=== PATIENT | female | born 1980 | race Caucasian/White ===

== ENCOUNTER 2021-04-11 11:20 | Emergency (ER) | payer OTHER, SELFPAY ==
[2021-04-11 11:40] VITALS: BP 185/118; PULSE 85; RESP 15; TEMP 36.8; O2SAT 98; BMI 26.2
--- NOTE | 2021-04-11 14:52 | ED.BACK ---
HPI - Back Pain/Injury <Basim Nunes PA-C - Last Filed: 04/11/21 16:57> General Chief Complaint: Back Pain/Injury Stated Complaint: Buldging Disks in Lower Back Time Seen by Provider: 04/11/21 14:11 Source: patient Limitations: no limitations History of Present Illness HPI Narrative: Patient is a 40-year-old female that presents to ED today for an evaluation of back pain. Patient states that she has had right-sided back pain for approximately 1 month, but she notes that her pain has worsened over the past 3-4 days. She reports an associated burning pain that travels down her right lower extremity with occasional muscle spasms. Additionally, she reports associated intermittent nausea when her pain worsens. Of note, the patient reports a mechanical fall approximately 1 week ago when she was walking her dog that resulted in her falling on her right side. Patient denies fever, chills, decreased sensation to touch in the extremities, loss of bladder or bowel control, saddle anesthesia, abdominal pain, or vomiting. No other concerns voiced at this time. Related Data Home Medications Medication Instructions Recorded Confirmed digestive enzymes PO 09/29/18 09/29/18 norethindrone (contraceptive) 0.35 0.35 mg PO DAILY 09/29/18 09/29/18 mg tablet (Sharobel) Previous Rx's Medication Instructions Recorded calcipotriene 0.005 % scalp 1 applictn TOP BEDTIME #60 ml 09/29/18 solution fluocinolone 0.01 % topical 1 applictn TOP BID #60 ml 09/30/18 solution Allergies Allergy/AdvReac Type Severity Reaction Status Date / Time No Known Drug Allergies Allergy Verified 04/11/21 11:40 Review of Systems <Basim Nunes PA-C - Last Filed: 04/11/21 16:57> Constitutional Constitutional: Denies chills, Denies fever(s), Denies frequent falls, Denies lethargy and Denies weakness ENT Ears, Nose, Mouth, and Throat: Denies dizziness Cardiovascular Cardiovascular: Denies chest pain, Denies irregular heart rhythm, Denies lightheadedness, Denies palpitations, Denies dyspnea, Denies dyspnea on exertion and Denies orthopnea Respiratory Respiratory: Denies cough, Denies dyspnea, Denies dyspnea on exertion and Denies wheezing Gastrointestinal Gastrointestinal: Denies abdominal pain, Denies change in bowel habits, Denies diarrhea, Reports nausea, Denies vomiting and Reports other (Denies fecal incontinence) Genitourinary Genitourinary: Denies difficulty voiding and Reports other (Denies urinary incontinence) Musculoskeletal Musculoskeletal: Denies numbness Neurologic Neurologic: Denies behavioral changes, Denies confusion, Denies dizziness, Denies frequent falls, Denies numbness and Denies weakness Psychiatric Psychiatric: Denies behavioral changes and Denies confusion Endocrine Endocrine: Denies palpitations Allergic/Immunologic Allergic/Immunologic: Denies wheezing Patient History <Basim Nunes PA-C - Last Filed: 04/11/21 16:57> Family History Grandfather Mental health problem Grandmother Age: 81 High cholesterol Social History Smoking Status: Current some day smoker Smoking Status: Current some day smoker alcohol intake frequency: holidays/special occasions only Substance Use Type: does not use Exam <Basim Nunes PA-C - Last Filed: 04/11/21 16:57> Narrative Exam Narrative: GENERAL: 40 year old patient appears stated age. Well-developed patient, in mild distress. HEAD: Atraumatic. Normocephalic. EYES: Pupils equal round and reactive. Extraocular motions intact. No scleral icterus. No injection or drainage. ENT: Nose without bleeding, purulent drainage. Throat without erythema, tonsillar hypertrophy or exudate. Airway patent. NECK: Trachea midline. Non tender CARDIOVASCULAR: Regular rate and rhythm without murmurs, gallops, or rubs. RESPIRATORY: Clear to auscultation. Breath sounds equal bilaterally. No wheezes, rales, or rhonchi. GASTROINTESTINAL: Abdomen soft, non-tender, nondistended. Pain with resisted flexion of the right hip. Tenderness to palpation appreciated on the lateral aspect of the right hip. EXTREMITIES: No edema or joint tenderness. No midline L-spine tenderness to palpation. BACK: Nontender without deformity or crepitance. No flank tenderness. NEURO: AOx3. Good sensation appreciated throughout the bilateral lower extremities to light touch. Resisted dorsiflexion and plantar flexion performed bilaterally without difficulty, slight pain appreciated with resisted dorsiflexion of the right ankle. SKIN: No rash or erythema of visible areas Initial Vital Signs Initial Vital Signs: Vital Signs Temperature 98.2 F 04/11/21 11:40 Pulse Rate 85 04/11/21 11:40 Respiratory Rate 15 04/11/21 11:40 Blood Pressure 185/118 H 04/11/21 11:40 Pulse Oximetry 98 04/11/21 11:40 <Le Urbina DO - Last Filed: 04/11/21 20:09> Initial Vital Signs Initial Vital Signs: Vital Signs Temperature 98.2 F 04/11/21 11:40 Pulse Rate 85 04/11/21 11:40 Respiratory Rate 15 04/11/21 11:40 Blood Pressure 185/118 H 04/11/21 11:40 Pulse Oximetry 98 04/11/21 11:40 Course <Basim Nunes PA-C - Last Filed: 04/11/21 16:57> Course Course Narrative: Patient is a 40-year-old female that presents to ED today for an evaluation of back pain. Gabapentin, Toradol, dexamethasone ordered. Bedside urine dipstick shows glucose of 1000 mg/dL. Blood glucose ordered and resulted 179. Orders Ordered: Discontinued Medications Dexamethasone (Dexamethasone 4 Mg Tablet) 4 mg PO NOW ONE Stop: 04/11/21 14:53 Last Admin: 04/11/21 15:03 Dose: 4 mg Documented by: JOE Gabapentin (Gabapentin 300 Mg Capsule) 300 mg PO NOW ONE Stop: 04/11/21 14:53 Last Admin: 04/11/21 15:03 Dose: 300 mg Documented by: JOE Ketorolac Tromethamine (Ketorolac 10 Mg Tablet) 10 mg PO NOW ONE Stop: 04/11/21 14:53 Last Admin: 04/11/21 15:03 Dose: 10 mg Documented by: JOE Vital Signs Vital signs: Vital Signs - 8 hr 04/11/21 15:11 Pulse Rate 88 Blood Pressure 154/107 H Pulse Oximetry 100 <Le Urbina DO - Last Filed: 04/11/21 20:09> Course Course Narrative: Patient is a 40-year-old female that presents to ED today for an evaluation of back pain. Gabapentin, Toradol, dexamethasone ordered. Bedside urine dipstick shows glucose of 1000 mg/dL. Blood glucose ordered and resulted 179. Orders Ordered: Discontinued Medications Dexamethasone (Dexamethasone 4 Mg Tablet) 4 mg PO NOW ONE Stop: 04/11/21 14:53 Last Admin: 04/11/21 15:03 Dose: 4 mg Documented by: JOE Gabapentin (Gabapentin 300 Mg Capsule) 300 mg PO NOW ONE Stop: 04/11/21 14:53 Last Admin: 04/11/21 15:03 Dose: 300 mg Documented by: JOE Ketorolac Tromethamine (Ketorolac 10 Mg Tablet) 10 mg PO NOW ONE Stop: 04/11/21 14:53 Last Admin: 04/11/21 15:03 Dose: 10 mg Documented by: JOE Vital Signs Vital signs: Vital Signs - 8 hr 04/11/21 15:11 Pulse Rate 88 Blood Pressure 154/107 H Pulse Oximetry 100 MDM - Back Pain/Injury <Basim Nunes PA-C - Last Filed: 04/11/21 16:57> Lab Data Labs: Point of Care Testing Test Results Negative Glucose POC 179 Urine Dip Bedside Urine Glucose 1000 mg/dl Bedside Urine Bilirubin - Negative Bedside Urine Ketone - Negative Urine Specific [place] 1.025 Bedside Urine Occult Blood - Negative Bedside Urine pH 5.5 Bedside Urine Protein +/- 15 Bedside Urine Leukocytes - Negative Esterase MDM Narrative Medical decision making narrative: Patient is a 40-year-old female that presents to ED today for an evaluation of back pain. To consider lumbar radiculopathy versus cauda equinus syndrome versus musculoskeletal low back pain. Physical examination is reassuring, as the patient does not have saddle anesthesia and notes good sensation throughout her bilateral lower extremities. Additionally, she has denied any changes in bowel or bladder function including urinary incontinence or retention or fecal incontinence or retention. Patient states she is feeling better after receiving her gabapentin, Toradol, and dexamethasone and she states she is feeling good enough to go home. Discussed strict return precautions with the patient prior to discharge. <Le Urbina DO - Last Filed: 04/11/21 20:09> Lab Data Labs: Point of Care Testing Test Results Negative Glucose POC 179 Urine Dip Bedside Urine Glucose 1000 mg/dl Bedside Urine Bilirubin - Negative Bedside Urine Ketone - Negative Urine Specific [place] 1.025 Bedside Urine Occult Blood - Negative Bedside Urine pH 5.5 Bedside Urine Protein +/- 15 Bedside Urine Leukocytes - Negative Esterase Discharge Plan Departure Patient Disposition: Home Clinical Impression: Lumbar radiculopathy Instructions: DI for Back Pain With Sciatica Activity Restrictions/Additional Instructions: *You have been diagnosed with lumbar radiculopathy *What to do: *Please continue to take your regular medications as directed. [ ] New medication prescriptions sent to your pharmacy: [ ] [ ] New medication written as a paper prescription [X] No new medications given *Please follow up with your primary care provider in 2-3 days, call for an appointment. Let them know you were seen in the Emergency Department and that we ask that you be seen in follow up. We will electronically transmit a record of today's note if your PCP is in our system. [facility] can be reached [phone]. *If you do not have a primary care provider please contact the [facility] Resource line at [phone]. They will ask some questions about your medical history and help get you set up with a doctor in the community. *Return to Emergency Department if you should have any new, worsening or concerning symptoms, such as fever greater than 101 F, shaking chills, worsening pain, decreased sensation along the inner thighs, bowel or bladder incontinence, persistent vomiting or other bothersome symptoms. Prescriptions: No Action digestive enzymes PO RF: 0 norethindrone (contraceptive) [Sharobel] 0.35 mg tablet 0.35 mg PO DAILY RF: 0 calcipotriene 0.005 % solution 1 applictn TOP BEDTIME Qty: 60 RF: 1 fluocinolone 0.01 % solution 1 applictn TOP BID Qty: 60 RF: 3 <Le Urbina, DO - Last Filed: 04/11/21 20:09> [facility] ED Attending Belinda Attestation: I was immediately available in the department for consultation. Documentation has been reviewed. Discussed todays findings and case. Urine glucose showed greater than a 1000 point of care glucose is 179 patient was encouraged to follow up with primary care for further testing.
[2021-04-11] MEDS: dexAMETHasone 4 MG TABLET PO (15:03)
[2021-04-11] MEDS: GABAPENTIN 300 MG CAPSULE PO (15:03)
[2021-04-11] MEDS: KETOROLAC 10 MG TABLET PO (15:03)
[2021-04-11 15:11] VITALS: BP 154/107; PULSE 88; O2SAT 100
== END 2021-04-11 16:38 | disposition home or self-care (01) ==
PROVIDERS: Emergency Provider Physician Assistant
DX: M54.16 Radiculopathy, lumbar region (principal); R11.0 Nausea
CPT/HCPCS: 81003; 81025; 82962; 99283

== ENCOUNTER → 2021-04-15 12:49 | Outpatient (CLI) | payer OTHER, SELFPAY ==
--- NOTE | 2021-04-15 | DI.RAD.S_ITS ---
PROCEDURE: XR LUMBAR SPINE MIN 4V INDICATIONS: Low back pain, unspecified TECHNIQUE: 4 views of the lumbar spine were acquired, including bilateral oblique views. COMPARISON: [facility], , -SPINE 2-3 VIEWS, 08/30/2008, 10:13. FINDINGS: Bones: Rudimentary ribs at T12. 5 nonrib-bearing vertebrae are present. There is normal bony alignment. No vertebral body compression fractures. No suspicious bony lesions. Facet arthrosis at L5-S1. Soft tissues: Overlying bowel gas pattern is normal. No suspicious soft tissue calcifications. Oblique images: No pars defects. IMPRESSION: No acute osseous abnormality. Dictated by: Eduardo Kirk M.D. on 04/15/2021 at 15:16 Approved by: Eduardo Kirk M.D. on 04/15/2021 at 15:17
== END ==
PROVIDERS: Referring Provider Chiropractor; Visit Provider Chiropractor
DX: M54.50 Low back pain, unspecified (principal)
CPT/HCPCS: 72110

== ENCOUNTER → 2021-05-06 12:12 | Outpatient (CLI) | payer OTHER, SELFPAY ==
[2021-05-06 12:41] LABS: Hematocrit 40.3 % (36-46); Hemoglobin 13.4 g/dL (12.0-16.0); Mean Corpuscular HGB Conc 33.3 % (30-36); Mean Corpuscular Hemoglobin 31.2 PG (26-34); Mean Corpuscular Volume 93.9 fL (80-100); Platelet Count 241 X10^3/uL (150-400); Red Blood Cell Count 4.29 X10^6/uL (4.0-5.2); White Blood Cell Count 9.7 X10^3/uL (4.5-11.0)
[2021-05-06 12:58] LABS: Hemoglobin A1C% w Est Avg Glu 9.2 % (4.0-6.0)
[2021-05-06 13:14] LABS: Alanine Aminotransferase 31 IU/L (<35); Albumin 4.6 g/dL (3.5-5.0); Albumin Globulin Ratio 1.7 (1.0-2.8); Alkaline Phosphatase 88 U/L (38-126); Aspartate Aminotransferase 27 IU/L (14-36); BUN Creatinine Ratio 27.3 (6-22); Bilirubin Total 0.6 mg/dL (0.2-1.3); Blood Urea Nitrogen 15 mg/dL (7-17); Calcium 9.9 mg/dL (8.4-10.2); Carbon Dioxide 26 mmol/L (22-32); Chloride 100 mmol/L (98-107); Cholesterol 245 mg/dL (140-199); Estimated Glomerular Filt Rate > 60.0 mL/min (>60); Globulin 2.7 g/dL (1.7-4.1); Glucose 239 mg/dL (70-100); HDL Cholesterol 66 mg/dL (40-60); HEMOLYSIS < 15 (0-50); LDL Cholesterol Calculated 144 mg/dL (<100); Potassium 4.1 mmol/L (3.4-5.1); Sodium 135 mmol/L (137-145); Total Protein 7.3 g/dL (6.3-8.2); Triglycerides 176 mg/dL (35-150)
[2021-05-06 13:30] LABS: Free T3, Triiodothyronine Free 3.27 pg/mL (2.77-5.27); Free T4, Direct Thyroxine 0.93 ng/dL (0.78-2.19)
[2021-05-06 17:15] LABS: Creatinine Urine Random 77.1 mg/dL
[2021-05-06 17:19] LABS: Microalbumi Creatinin Ratio Ur 45.3 ug/mg CR (<30); Microalbumin Urine Random 3.5 mg/dL (0-1.6)
== END ==
PROVIDERS: PCP Nurse Practitioner; Referring Provider Nurse Practitioner; Visit Provider Nurse Practitioner
DX: Z00.00 Encounter for general adult medical examination without abnormal findings (principal); E11.9 Type 2 diabetes mellitus without complications
CPT/HCPCS: 36415; 80053; 80061; 82043; 82570; 83036; 84439; 84443; 84481; 85027

== ENCOUNTER → 2021-07-09 15:40 | Outpatient (CLI) | payer OTHER, SELFPAY ==
--- NOTE | 2021-07-10 14:57 | DIAB.INIT ---
Initial Diabetes Education Assessment Name: Mayra Jackson Date: 07/09/21 Time: 340-293p Dx: Type II Diabetes Provider: Sveta Bonds Preferred Learning Style: Listening, watching Mayra presents today for initial diabetes ed visit. States she is unclear on what she can do to manage her BG since she already eats quite healthy. Aims for low carb, adding vegetables, lean protein, and quit ETOH. States she has decreased her ETOH intake to 2 servings per day over the last 2 years, and in the last month quit drinking completely. Denies any s/s of withdrawal. Reports difficulty managing BG when she had covid last May. Set BG of 350 with provider when to call provider. Aiming for 150 for BG goals with provider at this time. Possible FH of DM with paternal grandfather. Does not have contact with maternal family. States she feels confused as to why she has this diagnosis. States she can feel elevated BG in her head (heavy/pressure) and tension in her neck. In fact, wondering if recent headaches are from hyperglycemia instead of migraine. Walking brings BG down significantly. Denies any excessive urination or thirst. Fasts for 12 hours overnight and still wakes with hyperglycemia. Brought BG log book and food log for review today. Using monk fruit in her tea. Review of food log indicates low carb meals for most meals and snacks. Endorses gluten allergy which manifests in rashes. Anthropometrics: Ht: 65 Wt: 149# reported Weight history: -8-10# reported since d/c ETOH Physical Activity: walks dogs 1-2 x per day for 15-30 min. States she cannot think of a way to increase this with her current work load. 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 Weekends states she will often walk BID. Self-Monitoring Blood Glucose: Per ADA guidelines, FBG all elevated. After meals readings indicate 1/6 elevated lunch pc and 4/6 elevated dinner pc. Per provider rec of <150 5/6 elevated FBG. In range readings from walk prior to eating. Seems likely that medication and/or could help with hyperglycemia. Per provider notes and pt, current plan is getting a DPP4i approved for use. Pt endorses fear of needles. May be a good candidate for SGLT2i pending provider recs. Date Pre Post Pre Post Pre Post HS 07/03 182 145 129 07/04 163 190 07/05 172 155 123 210 07/06 170 137 205 07/07 138 after walk 183 07/08 223 135 188 07/09 189 167 155 Diabetes Medications: Metformin 1000 mg BID DPP4i awaiting approval Pertinent Labs: 04/2021: HgA1c: 9.2% T H Cholesterol: 245 H LDL: 144 H HDL: 66 AST: 27 WNL ALT: 31 WNL Past Medical History: (Last Updated 06/26/21 @ 08:51 by JUAQUIN Benitez) Hypertension Migraine Migraine aura without headache (migraine equivalents) Migraine with visual aura Mixed hyperlipidemia due to type 2 diabetes mellitus Non-insulin dependent diabetes mellitus Intervention: This participant was very receptive. Provided appropriate educational handouts. Discussed the following topics: Completed intake assessment. Discussed barriers to care. Pathophysiology of type 2 diabetes HgA1c, its correlation to blood glucose numbers, and rationale for goal Importance of self-monitoring, how often, and when to check. Currently checking 2-4x per day. Plate Method, impact of macronutrients on blood sugar, meal timing, carbohydrate goal for meals/snacks, pairing macronutrients and spreading out carbohydrates for better blood glucose management Reviewed label reading for net carbs General recommended servings for carbohydrates at meals and snacks Role of physical activity and following provider guidelines for safety Medication types and action Created SMART goals for patient self-care and success. Goals: Try to eat q 3-5 hours Walk 30-40 mins per day on weekends Call insurance an ask about different DM med coverage prior to PCP visit Follow-up: ODILIA ROGERS follow-up in 3-4 weeks. Overall, Mayra seems to be doing well with nutrition changes. She is having some challenges with getting medication coverage. Additionally, physical activity is a barrier for her most days. Hoping she can get approved for an additional Dm agent to better manage BG. Meryl Hayes RDN, [facility] Certified Diabetes Care and Supervisor [employer] P: [phone] Thank you for this referral
== END ==
PROVIDERS: PCP Nurse Practitioner; Referring Provider Nurse Practitioner; Visit Provider Nurse Practitioner
DX: E11.65 Type 2 diabetes mellitus with hyperglycemia (principal); Z79.84 Long term (current) use of oral hypoglycemic drugs; Z71.3 Dietary counseling and surveillance
CPT/HCPCS: G0108

== ENCOUNTER → 2021-08-05 07:39 | Outpatient (CLI) | payer OTHER, SELFPAY ==
[2021-08-05 09:37] LABS: Alanine Aminotransferase 17 IU/L (<35); Albumin 4.8 g/dL (3.5-5.0); Albumin Globulin Ratio 1.6 (1.0-2.8); Alkaline Phosphatase 65 U/L (38-126); Aspartate Aminotransferase 21 IU/L (14-36); BUN Creatinine Ratio 23.5 (6-22); Bilirubin Total 0.6 mg/dL (0.2-1.3); Blood Urea Nitrogen 12 mg/dL (7-17); Calcium 9.9 mg/dL (8.4-10.2); Carbon Dioxide 24 mmol/L (22-32); Chloride 104 mmol/L (98-107); Cholesterol 212 mg/dL (140-199); Estimated Glomerular Filt Rate > 60.0 mL/min (>60); Glucose 199 mg/dL (70-100); HDL Cholesterol 43 mg/dL (40-60); HEMOLYSIS < 15 (0-50); LDL Cholesterol Calculated 146 mg/dL (<100); Potassium 4.6 mmol/L (3.4-5.1); Sodium 135 mmol/L (137-145); Total Protein 7.8 g/dL (6.3-8.2); Triglycerides 116 mg/dL (35-150)
== END ==
PROVIDERS: PCP Nurse Practitioner; Referring Provider Nurse Practitioner; Visit Provider Nurse Practitioner
DX: E11.69 Type 2 diabetes mellitus with other specified complication (principal); E78.2 Mixed hyperlipidemia; I10 Essential (primary) hypertension; Z79.899 Other long term (current) drug therapy
CPT/HCPCS: 36415; 80053; 80061; 83036

== ENCOUNTER → 2021-08-07 15:27 | Outpatient (CLI) | payer OTHER, SELFPAY ==
--- NOTE | 2021-08-08 16:06 | DIAB.MNTFU ---
Diabetes Medical Nutrition Therapy Assessment Name: Mayra Jackson Date: 08/07/21 Time: 335-450p Dx: Type II Diabetes Mayra presents today for nutrition follow-up. States she would like to discuss diet changes specifically for reducing her cholesterol. Per provider notes, and confirmed by Mayra, the plan is to start her on a statin after getting adjusted to new dm med, glipizide, which she will begin tonight. Was previously considering DPP4i, but this was $40 with her insurance per her report. Decided to go with more affordable sulfonylurea. New labs indicate improved hgA1c, but still >7%. Improved cholesterol but cont >200. States eats most fish in the summer. Does not like frozen fish. Only eats fresh or canned tuna or prawns sometimes frozen. Eating plenty of nuts and seeds. Loves cheese. May be eating high saturated fat intake with cheese and butter intake. Anthropometrics: Wt: 147# reported Physical Activity: Has increased since last visit. Now jogging for the last two weeks in the morning. Jogs 1 mi. Then walks 30-45 min BID. Steps per day mostly >10K this week. Great improvement. Self-Monitoring Blood Glucose: Endorses continued elevated FBG 150-200 mg/dL. After meal readings in range 87-170 mg/dL. Diabetes Medications: 1000 mg Metformin BID New: Glipizide 5mg with dinner Pertinent Labs: 07/2021: HgA1c: 8% Cholesterol: 212 H LDL: 146 H HDL: 43 L 04/2021: HgA1c: 9.2% T H Cholesterol: 245 H LDL: 144 H HDL: 66 AST: 27 WNL ALT: 31 WNL Past Medical History: (Last Reviewed 08/06/21 @ 17:12 by JUAQUIN Benitez) Hypertension Migraine Migraine aura without headache (migraine equivalents) Migraine with visual aura Mixed hyperlipidemia due to type 2 diabetes mellitus Non-insulin dependent diabetes mellitus Nutrition Rx: Plate method, Saturated fat 10g per day or less Nutrition Diagnosis: Predicted excessive saturated fat intake r/t nutrition knowledge deficit aeb elevated cholesterol, pt report, diet recall Nutrition related knowledge deficit r/t req additional mnt for HLD aeb pt report and labs Predicted inadequate fiber intake r/t lower whole grain/GF options and fruit intake aeb pt report Intervention: This participant was very receptive. Provided appropriate educational handouts. Discussed the following topics: Blood sugar review and trends. Mediterranean nutrition recs heart healthy fats increasing fiber on GF diet incorporating fruit and vegetables and beans Fish intake Label reading Physical activity plan and progress Created SMART goals for patient self-care and success. Goals: Try to eat q 3-5 hours- met Walk 30-40 mins per day on weekends- met Call insurance an ask about different DM med coverage prior to PCP visit - met Look for higher fiber GF bread- new Reduce cheese intake- new Read labels for saturated fat- new Follow-up: ODILIA ROGERS follow-up in October. Mayra would like to postpone follow-up until after new labs. Encouraged her to call or message with any questions. She agreed. Meryl Hayes RDN, [facility] Certified Diabetes Care and College [employer] Assistant P: [phone] Thank you for this referral
== END ==
PROVIDERS: PCP Nurse Practitioner; Referring Provider Nurse Practitioner; Visit Provider Nurse Practitioner
DX: E11.9 Type 2 diabetes mellitus without complications (principal); Z79.84 Long term (current) use of oral hypoglycemic drugs; Z71.3 Dietary counseling and surveillance
CPT/HCPCS: 97802

== ENCOUNTER → 2021-09-11 08:08 | Outpatient (CLI) | payer OTHER, SELFPAY ==
[2021-09-11 09:30] LABS: Hemoglobin A1C% w Est Avg Glu 6.9 % (4.0-6.0)
[2021-09-11 09:46] LABS: Alanine Aminotransferase 15 IU/L (<35); Albumin 4.5 g/dL (3.5-5.0); Albumin Globulin Ratio 1.8 (1.0-2.8); Alkaline Phosphatase 60 U/L (38-126); Aspartate Aminotransferase 21 IU/L (14-36); BUN Creatinine Ratio 19.7 (6-22); Bilirubin Total 0.3 mg/dL (0.2-1.3); Blood Urea Nitrogen 14 mg/dL (7-17); Calcium 9.5 mg/dL (8.4-10.2); Carbon Dioxide 24 mmol/L (22-32); Chloride 106 mmol/L (98-107); Cholesterol 183 mg/dL (140-199); Estimated Glomerular Filt Rate > 60.0 mL/min (>60); Globulin 2.5 g/dL (1.7-4.1); Glucose 144 mg/dL (70-100); HDL Cholesterol 45 mg/dL (40-60); HEMOLYSIS < 15 (0-50); LDL Cholesterol Calculated 124 mg/dL (<100); Potassium 4.3 mmol/L (3.4-5.1); Sodium 139 mmol/L (137-145); Triglycerides 70 mg/dL (35-150)
[2021-09-11 15:40] LABS: Microalbumi Creatinin Ratio Ur 19.3 ug/mg CR (<30); Microalbumin Urine Random 3.2 mg/dL (0-1.6)
== END ==
PROVIDERS: PCP Nurse Practitioner; Referring Provider Nurse Practitioner; Visit Provider Nurse Practitioner
DX: E11.69 Type 2 diabetes mellitus with other specified complication (principal); E78.2 Mixed hyperlipidemia; I10 Essential (primary) hypertension; Z79.899 Other long term (current) drug therapy
CPT/HCPCS: 36415; 80053; 80061; 82043; 82570; 83036

== ENCOUNTER → 2021-10-21 07:49 | Outpatient (CLI) | payer OTHER, SELFPAY ==
[2021-10-21 08:55] LABS: Creatinine Urine Random 138.4 mg/dL
[2021-10-21 08:57] LABS: Hemoglobin A1C% w Est Avg Glu 6.9 % (4.0-6.0)
[2021-10-21 09:01] LABS: Microalbumi Creatinin Ratio Ur 21.6 ug/mg CR (<30)
[2021-10-21 09:04] LABS: Alanine Aminotransferase 14 IU/L (<35); Albumin 4.6 g/dL (3.5-5.0); Albumin Globulin Ratio 1.8 (1.0-2.8); Alkaline Phosphatase 57 U/L (38-126); Aspartate Aminotransferase 19 IU/L (14-36); BUN Creatinine Ratio 26.3 (6-22); Bilirubin Total 0.4 mg/dL (0.2-1.3); Blood Urea Nitrogen 15 mg/dL (7-17); Calcium 9.3 mg/dL (8.4-10.2); Carbon Dioxide 22 mmol/L (22-32); Chloride 107 mmol/L (98-107); Cholesterol 155 mg/dL (140-199); Estimated Glomerular Filt Rate > 60 mL/min (>60); Globulin 2.5 g/dL (1.7-4.1); Glucose 191 mg/dL (70-100); HDL Cholesterol 47 mg/dL (40-60); HEMOLYSIS < 15 (0-50); LDL Cholesterol Calculated 88 mg/dL (<100); Potassium 4.5 mmol/L (3.4-5.1); Sodium 140 mmol/L (137-145); Total Protein 7.1 g/dL (6.3-8.2); Triglycerides 99 mg/dL (35-150)
== END ==
PROVIDERS: PCP Nurse Practitioner; Referring Provider Nurse Practitioner; Visit Provider Nurse Practitioner
DX: E11.69 Type 2 diabetes mellitus with other specified complication (principal); E78.2 Mixed hyperlipidemia; Z79.899 Other long term (current) drug therapy
CPT/HCPCS: 36415; 80053; 80061; 82043; 82570; 83036

== ENCOUNTER → 2022-01-28 07:45 | Outpatient (CLI) | payer OTHER, SELFPAY ==
[2022-01-28 08:38] LABS: Add Manual Diff / Slide Review NO; Basophils Absolute Auto 200 /uL (0-100); Basophils Percent Auto 2.6 % (0-2); Eosinophils Absolute Auto 100 /uL (0-450); Eosinophils Percent Auto 1.8 % (2-4); Hematocrit 38.7 % (36-46); Hemoglobin 13.2 g/dL (12.0-16.0); Lymphocytes Absolute Auto 1800 /uL (1100-4500); Mean Corpuscular HGB Conc 34.1 % (30-36); Mean Corpuscular Hemoglobin 30.1 PG (26-34); Mean Corpuscular Volume 88.4 fL (80-100); Monocytes Absolute Auto 500 /uL (0-900); Monocytes Percent Auto 7.3 % (3-14); Neutrophils Absolute Auto 4000 /uL (1500-7000); Neutrophils Percent Auto 61.3 % (50-75); Platelet Count 259 X10^3/uL (150-400); Red Blood Cell Count 4.38 X10^6/uL (4.0-5.2); Red Cell Distribution Width 13.8 % (11.6-14.8); White Blood Cell Count 6.5 X10^3/uL (4.5-11.0)
[2022-01-28 08:41] LABS: Hemoglobin A1C% w Est Avg Glu 6.9 % (4.0-6.0)
[2022-01-28 09:24] LABS: Alanine Aminotransferase 15 IU/L (<35); Albumin 4.9 g/dL (3.5-5.0); Albumin Globulin Ratio 1.7 (1.0-2.8); Alkaline Phosphatase 70 U/L (38-126); Aspartate Aminotransferase 20 IU/L (14-36); BUN Creatinine Ratio 33.9 (6-22); Bilirubin Total 0.7 mg/dL (0.2-1.3); Blood Urea Nitrogen 20 mg/dL (7-17); Calcium 9.6 mg/dL (8.4-10.2); Carbon Dioxide 23 mmol/L (22-32); Chloride 105 mmol/L (98-107); Cholesterol 199 mg/dL (140-199); Estimated Glomerular Filt Rate > 60 mL/min (>60); Globulin 2.9 g/dL (1.7-4.1); Glucose 176 mg/dL (70-100); HDL Cholesterol 46 mg/dL (40-60); HEMOLYSIS < 15 (0-50); LDL Cholesterol Calculated 140 mg/dL (<100); Potassium 4.7 mmol/L (3.4-5.1); Sodium 139 mmol/L (137-145); Total Protein 7.8 g/dL (6.3-8.2); Triglycerides 63 mg/dL (35-150)
[2022-01-28 10:11] LABS: Creatinine Urine Random 145.4 mg/dL
[2022-01-28 10:16] LABS: Microalbumi Creatinin Ratio Ur 19.2 ug/mg CR (<30); Microalbumin Urine Random 2.8 mg/dL (0-1.6)
== END ==
PROVIDERS: PCP Nurse Practitioner; Referring Provider Nurse Practitioner; Visit Provider Nurse Practitioner
DX: E11.69 Type 2 diabetes mellitus with other specified complication (principal); E78.2 Mixed hyperlipidemia; I10 Essential (primary) hypertension
CPT/HCPCS: 36415; 80053; 80061; 82043; 82570; 83036; 85025

== ENCOUNTER → 2022-04-24 13:37 | Outpatient (CLI) | payer OTHER, SELFPAY ==
--- NOTE | 2022-04-24 13:39 | DI.MG.S_ITS ---
BILATERAL DIGITAL SCREENING MAMMOGRAM 3D/2D WITH CAD: 04/24/2022 CLINICAL: Baseline exam. Routine screening. No prior exams were available for comparison. Both breasts are heterogeneously dense, which may obscure small masses (category c / 51-75% glandular tissue). Current study was also evaluated with a Computer Aided Detection (CAD) system. There is possible irregular architectural distortion in the left breast at 12 o'clock middle depth. No other significant masses, calcifications, or other findings are seen in either breast. IMPRESSION: INCOMPLETE: NEEDS ADDITIONAL IMAGING EVALUATION The possible irregular architectural distortion in the left breast most likely is fibroglandular tissue or fibrocystic change and is indeterminate. Additional views with possible ultrasound are recommended. Based on the Tyrer Cuzick model (a risk assessment model) the patient's lifetime risk is 14.9% and her 10 year risk is 2.4%. According to the ACR, ACS, and NCCN guidelines, an annual breast MRI exam along with mammogram is recommended if the patient's lifetime risk is 20% or greater. This exam was interpreted at Station ID: [id number]. NOTE: For mammograms, a report in lay terms will be sent to the patient. Approximately 15% of breast malignancies will not be visualized mammographically. In the management of a palpable breast mass, a negative mammogram must not discourage biopsy of a clinically suspicious lesion. Electronically Signed By: Maria Eugenia nash/brittnee:04/24/2022 18:12:27 letter sent: Additional Imaging Needed ACR BI-RADS Category 0: Incomplete [id number]
--- NOTE | 2022-04-24 13:39 | DI.ECHO.S_ITS ---
[facility] +---------+ : : [address] [place] : : : : [id number] : : : : Phone: [phone]+ Echocardiogram Report + + :Name: JOEL RUIZ Study Date: 04/24/2022 Height: 65 in : :[facility] ReadingLocation: Weight: 135 lb : : Gender: Female BSA: 1.7 m2 : :: 1980 Age: 41 yrs BP: 117/74 mmHg: :Reason For Study: HYPERTENSION, NIDDM : :Ordering Physician: APRIL, : :SHANNA Performed By: Miriam Johnson : :Referring: SHANNA CHEN : + + Interpretation Summary The ejection fraction is estimated to be 60-65%. There is no significant valvular heart disease. Procedure: A two-dimensional transthoracic echocardiogram with color flow and Doppler was performed. The study quality was technically good. There is no prior echocardiogram noted for this patient. The patient was in normal sinus rhythm during the exam. The heart rate ranged between 64-75 bpm during the study. Left Ventricle: The left ventricle is normal in size. There is normal left ventricular wall thickness. The ejection fraction is estimated to be 60-65%. Left ventricular wall motion is normal. Right Ventricle: The right ventricle is normal in size and function. Atria: The left atrial size is normal. Right atrial size is normal. There is no Doppler evidence for an interatrial shunt. Mitral Valve: The mitral valve is normal in structure and function. There is trace mitral regurgitation. Aortic Valve: The aortic valve is normal in structure and function. The aortic valve is trileaflet. The aortic valve opens well. There is no aortic valve stenosis. There is trace aortic regurgitation. Tricuspid Valve: The tricuspid valve is normal in structure and function. There is trace tricuspid regurgitation. Pulmonic Valve: The pulmonic valve is not well seen, but is grossly normal. There is no pulmonic valvular regurgitation. Great Vessels: The aortic root is normal size. The dimensions of the ascending aorta are normal. The IVC is dilated (diameter is greater than 2.1 cm) yet it collapses greater than 50% with a sniff. This suggests a right atrial pressure of 8 mm Hg. Pericardium/ Pleura There is no pericardial effusion. There is no pleural effusion. MMode/2D Measurements & Calculations LVIDd: 5.1 cm LVOT diam: 2.1 cm LVIDs: 3.5 cm Ao root diam: 3.1 cm FS: 32.6 % asc Aorta Diam: 3.1 cm EPSS: 0.99 cm Ao Arch Diam (Prox Trans): 2.5 cm IVSd: 0.59 cm LVPWd: 0.85 cm LV romero. diameter/BSA (cm/m^2): 3.1 LV sys. diameter/BSA (cm/m^2): 2.1 LA A2 area: 19.3 cm2 RA long axis: 5.0 cm LA A4 area: 17.4 cm2 RA area: 17.4 cm2 LA length (vol): 5.5 cm RA vol: 51.7 ml LA vol: 52.0 ml RA : 30.9 ml/m2 LA vol index: 31.1 ml/m2 IVC diam: 2.1 cm RVD1 (basal): 3.1 cm RVD2 (mid): 2.5 cm TAPSE: 2.2 cm Doppler Measurements & Calculations Ao V2 max: 147.8 cm/sec LVOT Max Nixon: 113.0 cm/sec Ao V2 mean: 109.0 cm/sec LV V1 max P.1 mmHg Ao max P.7 mmHg LV V1 VTI: 23.5 cm Ao mean P.2 mmHg FAIZAN(I,D): 2.8 cm2 Ao V2 VTI: 29.9 cm FAIZAN(V,D): 2.7 cm2 sev ratio: 0.79 FAIZAN indexed to BSA (cm^2/m^2): 1.7 MV E max nixon: 82.5 cm/sec PA V2 max: 95.3 cm/sec MV A max nixon: 62.7 cm/sec PA V2 mean: 59.7 cm/sec MV E/A: 1.3 PA mean P.7 mmHg Med Peak E' Nixon: 8.7 cm/sec PA pr(Accel): 19.1 mmHg E/E' med: 9.5 Lat Peak E' Nixon: 11.8 cm/sec E/E' lat: 7.0 E/e' average: 8.2 MV dec time: 0.17 sec SVDEENA): 83.6 ml Reading Physician:12:15 PM
== END ==
PROVIDERS: PCP Nurse Practitioner; Referring Provider Nurse Practitioner; Visit Provider Nurse Practitioner
DX: Z12.31 Encounter for screening mammogram for malignant neoplasm of breast (principal); I10 Essential (primary) hypertension; E11.9 Type 2 diabetes mellitus without complications
CPT/HCPCS: 77063; 77067; 93005; 93010; 93306

== ENCOUNTER → 2022-04-24 14:39 | Outpatient (CLI) | payer OTHER, SELFPAY | PROVIDERS: PCP Nurse Practitioner; Referring Provider Nurse Practitioner; Visit Provider Nurse Practitioner | DX: I10 Essential (primary) hypertension (principal); E11.9 Type 2 diabetes mellitus without complications | CPT/HCPCS: 93005 ==

== ENCOUNTER → 2022-04-28 07:25 | Outpatient (CLI) | payer OTHER, SELFPAY ==
[2022-04-28 09:23] LABS: Hemoglobin A1C% w Est Avg Glu 6.8 % (4.0-6.0)
[2022-04-28 09:57] LABS: Alanine Aminotransferase 23 IU/L (<35); Albumin 4.7 g/dL (3.5-5.0); Albumin Globulin Ratio 1.5 (1.0-2.8); Alkaline Phosphatase 80 U/L (38-126); Aspartate Aminotransferase 26 IU/L (14-36); Bilirubin Total 0.4 mg/dL (0.2-1.3); Blood Urea Nitrogen 11 mg/dL (7-17); Calcium 9.3 mg/dL (8.4-10.2); Carbon Dioxide 22 mmol/L (22-32); Chloride 103 mmol/L (98-107); Cholesterol 173 mg/dL (140-199); Estimated Glomerular Filt Rate > 60 mL/min (>60); Globulin 3.2 g/dL (1.7-4.1); Glucose 140 mg/dL (70-100); HDL Cholesterol 61 mg/dL (40-60); HEMOLYSIS < 15 (0-50); LDL Cholesterol Calculated 101 mg/dL (<100); Potassium 4.4 mmol/L (3.4-5.1); Sodium 138 mmol/L (137-145); Total Protein 7.9 g/dL (6.3-8.2); Triglycerides 54 mg/dL (35-150)
[2022-04-28 09:59] LABS: Free T3, Triiodothyronine Free 3.65 pg/mL (2.77-5.27); Free T4, Direct Thyroxine 0.99 ng/dL (0.78-2.19)
[2022-04-28 10:13] LABS: Thyroid Stimulating Hormone 1.48 uIU/mL (0.47-4.68)
== END ==
PROVIDERS: PCP Nurse Practitioner; Referring Provider Nurse Practitioner; Visit Provider Nurse Practitioner
DX: E11.69 Type 2 diabetes mellitus with other specified complication (principal); E78.2 Mixed hyperlipidemia; I10 Essential (primary) hypertension; Z79.899 Other long term (current) drug therapy
CPT/HCPCS: 36415; 80053; 80061; 83036; 84439; 84443; 84481

== ENCOUNTER → 2022-05-14 13:43 | Outpatient (CLI) | payer OTHER, SELFPAY ==
[2022-05-14 14:16] LABS: Uric Acid 5.4 mg/dL (2.5-6.2)
[2022-05-14 15:44] LABS: Creatinine Urine Random 22.2 mg/dL
[2022-05-14 15:54] LABS: Microalbumin Urine Random < 0.6 mg/dL (0-1.6)
== END ==
PROVIDERS: PCP Nurse Practitioner; Referring Provider Nurse Practitioner; Visit Provider Nurse Practitioner
DX: E11.69 Type 2 diabetes mellitus with other specified complication (principal); E11.9 Type 2 diabetes mellitus without complications; E78.2 Mixed hyperlipidemia; I10 Essential (primary) hypertension; Z00.00 Encounter for general adult medical examination without abnormal findings; M79.675 Pain in left toe(s); Z79.899 Other long term (current) drug therapy; Z13.89 Encounter for screening for other disorder
CPT/HCPCS: 36415; 82043; 82570; 84550

== ENCOUNTER → 2022-05-15 09:22 | Outpatient (CLI) | payer OTHER, SELFPAY ==
--- NOTE | 2022-05-15 09:23 | DI.RAD.S_ITS ---
PROCEDURE: XR FOOT LT MIN 3V INDICATIONS: left great toe pain and bruising TECHNIQUE: 3 views of the foot were acquired. COMPARISON: None. FINDINGS: Bones: No fractures or dislocations. No suspicious bony lesions. Soft tissues: No tibiotalar joint effusion. Achilles tendon appears normal. IMPRESSION: No acute radiographic findings. If pain persists, followup imaging in 5-7 days is recommended to exclude occult fracture. Dictated by: Ary Haynes M.D. on 05/15/2022 at 12:31 Approved by: Ary Haynes M.D. on 05/15/2022 at 12:32
== END ==
PROVIDERS: PCP Nurse Practitioner; Referring Provider Family Medicine; Visit Provider Family Medicine
DX: M79.675 Pain in left toe(s) (principal); E11.9 Type 2 diabetes mellitus without complications; I10 Essential (primary) hypertension
CPT/HCPCS: 73630

== ENCOUNTER → 2022-07-24 07:46 | Outpatient (CLI) | payer OTHER, SELFPAY ==
[2022-07-24 08:23] LABS: Add Manual Diff / Slide Review NO; Basophils Absolute Auto 100 /uL (0-100); Basophils Percent Auto 2.3 % (0-2); Eosinophils Absolute Auto 100 /uL (0-450); Eosinophils Percent Auto 1.9 % (2-4); Hematocrit 37.2 % (36-46); Hemoglobin 12.2 g/dL (12.0-16.0); Lymphocytes Absolute Auto 1700 /uL (1100-4500); Lymphocytes Percent Auto 28.1 % (25-40); Mean Corpuscular HGB Conc 32.8 % (30-36); Mean Corpuscular Hemoglobin 29.8 PG (26-34); Mean Corpuscular Volume 90.8 fL (80-100); Monocytes Absolute Auto 500 /uL (0-900); Monocytes Percent Auto 7.3 % (3-14); Neutrophils Absolute Auto 3800 /uL (1500-7000); Neutrophils Percent Auto 60.4 % (50-75); Platelet Count 297 X10^3/uL (150-400); Red Cell Distribution Width 13.6 % (11.6-14.8); White Blood Cell Count 6.2 X10^3/uL (4.5-11.0)
[2022-07-24 08:26] LABS: Hemoglobin A1C% w Est Avg Glu 6.8 % (4.0-6.0)
[2022-07-24 08:42] LABS: Alanine Aminotransferase 23 IU/L (<35); Albumin 4.5 g/dL (3.5-5.0); Albumin Globulin Ratio 1.6 (1.0-2.8); Alkaline Phosphatase 64 U/L (38-126); Aspartate Aminotransferase 25 IU/L (14-36); BUN Creatinine Ratio 20.6 (6-22); Bilirubin Total 0.7 mg/dL (0.2-1.3); Blood Urea Nitrogen 13 mg/dL (7-17); Calcium 9.4 mg/dL (8.4-10.2); Carbon Dioxide 25 mmol/L (22-32); Chloride 102 mmol/L (98-107); Cholesterol 186 mg/dL (140-199); Estimated Glomerular Filt Rate > 60 mL/min (>60); Globulin 2.9 g/dL (1.7-4.1); Glucose 149 mg/dL (70-100); HDL Cholesterol 57 mg/dL (40-60); HEMOLYSIS < 15 (0-50); LDL Cholesterol Calculated 117 mg/dL (<100); Potassium 4.2 mmol/L (3.4-5.1); Sodium 138 mmol/L (137-145); Total Protein 7.4 g/dL (6.3-8.2); Triglycerides 61 mg/dL (35-150)
[2022-07-24 08:59] LABS: Free T3, Triiodothyronine Free 3.74 pg/mL (2.77-5.27); Free T4, Direct Thyroxine 0.97 ng/dL (0.78-2.19)
[2022-07-24 09:13] LABS: Thyroid Stimulating Hormone 1.73 uIU/mL (0.47-4.68)
== END ==
PROVIDERS: PCP Nurse Practitioner; Referring Provider Nurse Practitioner; Visit Provider Nurse Practitioner
DX: Z00.00 Encounter for general adult medical examination without abnormal findings (principal); E11.69 Type 2 diabetes mellitus with other specified complication; E11.9 Type 2 diabetes mellitus without complications; E78.2 Mixed hyperlipidemia; I10 Essential (primary) hypertension; Z79.899 Other long term (current) drug therapy
CPT/HCPCS: 36415; 80053; 80061; 83036; 84439; 84443; 84481; 85025

== ENCOUNTER → 2022-08-28 08:52 | Outpatient (CLI) | payer OTHER, SELFPAY ==
--- NOTE | 2022-08-28 | DI.MG.S_ITS ---
UNILATERAL LEFT DIGITAL DIAGNOSTIC MAMMOGRAM 3D/2D WITH ADDITIONAL VIEWS: 08/28/2022 CLINICAL: Additional evaluation requested from prior study. Comparison is made to exam dated: 04/24/2022 mammogram - [facility]. The left breast is heterogeneously dense, which may obscure small masses (category c / 51-75% glandular tissue). The irregular architectural distortion in the left breast at 12 o'clock middle depth is no longer seen and most likely is fibroglandular tissue. This is not seen in additional views. No other significant masses or calcifications are seen in the breast. IMPRESSION: BENIGN There is no mammographic evidence of malignancy. Return to annual mammogram screening schedule is recommended. Based on the Tyrer Cuzick model (a risk assessment model) the patient's lifetime risk is 14.9% and her 10 year risk is 2.4%. According to the ACR, ACS, and NCCN guidelines, an annual breast MRI exam along with mammogram is recommended if the patient's lifetime risk is 20% or greater. This exam was interpreted at Station ID: [id number]. NOTE: For mammograms, a report in lay terms will be sent to the patient. Approximately 15% of breast malignancies will not be visualized mammographically. In the management of a palpable breast mass, a negative mammogram must not discourage biopsy of a clinically suspicious lesion. Electronically Signed By: Golden taylor/brittnee:08/28/2022 09:21:20 letter sent: Normal Exam ACR BI-RADS Category 2: Benign Finding(s) 3342F
== END ==
PROVIDERS: PCP Nurse Practitioner; Referring Provider Nurse Practitioner; Visit Provider Nurse Practitioner
DX: R92.8 Other abnormal and inconclusive findings on diagnostic imaging of breast (principal)
CPT/HCPCS: 77065; G0279

== ENCOUNTER → 2022-10-01 07:49 | Outpatient (CLI) | payer OTHER, SELFPAY ==
[2022-10-01 10:03] LABS: Alanine Aminotransferase 19 IU/L (<35); Albumin 4.4 g/dL (3.5-5.0); Albumin Globulin Ratio 1.6 (1.0-2.8); Alkaline Phosphatase 62 U/L (38-126); Aspartate Aminotransferase 26 IU/L (14-36); BUN Creatinine Ratio 25.9 (6-22); Bilirubin Total 0.3 mg/dL (0.2-1.3); Blood Urea Nitrogen 15 mg/dL (7-17); Calcium 9.3 mg/dL (8.4-10.2); Carbon Dioxide 26 mmol/L (22-32); Chloride 103 mmol/L (98-107); Cholesterol 159 mg/dL (140-199); Estimated Glomerular Filt Rate > 60 mL/min (>60); Globulin 2.8 g/dL (1.7-4.1); Glucose 108 mg/dL (70-100); HDL Cholesterol 58 mg/dL (40-60); HEMOLYSIS < 15 (0-50); LDL Cholesterol Calculated 90 mg/dL (<100); Potassium 4.4 mmol/L (3.4-5.1); Sodium 137 mmol/L (137-145); Total Protein 7.2 g/dL (6.3-8.2); Triglycerides 55 mg/dL (35-150)
[2022-10-02 06:10] LABS: Labcorp Hemoglobin (Hb) A1c 6.5 % (4.8-5.6)
[2022-10-02 16:50] LABS: HIV 1 & 2 Ab/Ag 4th Gen Combo NEGATIVE (NEGATIVE); Hep C Virus Ab w/Reflex Quant NEGATIVE s/c (NEGATIVE)
== END ==
PROVIDERS: PCP Nurse Practitioner; Referring Provider Nurse Practitioner; Visit Provider Nurse Practitioner
DX: E11.9 Type 2 diabetes mellitus without complications (principal); E11.69 Type 2 diabetes mellitus with other specified complication; E78.2 Mixed hyperlipidemia; I10 Essential (primary) hypertension; Z79.899 Other long term (current) drug therapy; Z11.4 Encounter for screening for human immunodeficiency virus [HIV]; Z11.59 Encounter for screening for other viral diseases
CPT/HCPCS: 36415; 80053; 80061; 83036; 86803; 87389

== ENCOUNTER 2022-11-03 13:39 | Observation (INO) | payer OTHER, SELFPAY ==
[2022-11-03] VITALS (41 sets, daily range): BP systolic 108–149; BP diastolic 70–94; PULSE 60–83; RESP 11–24; TEMP 36.5–37.1; O2SAT 96–100; BMI 22.4; BMI 21.4
--- NOTE | 2022-11-03 13:58 | DI.CT.S_ITS ---
PROCEDURE: CT STROKE INDICATIONS: R arm, word finding, vision TECHNIQUE: Noncontrast 4.5 mm thick angled axial sections acquired from the foramen magnum to the vertex, with coronal reformats. For radiation dose reduction, the following was used: automated exposure control, adjustment of mA and/or kV according to patient size. COMPARISON: None. FINDINGS: Image quality: Excellent. CSF spaces: Basal cisterns are patent. No extra-axial fluid collections. Ventricles are normal in size and shape. Brain: No midline shift. No intracranial masses or hemorrhage. Man-white matter interface is normal. Skull and face: Calvarium and visualized facial bones are intact, without suspicious lesions. Sinuses: Visualized sinuses and mastoids are clear. IMPRESSION: No acute intracranial abnormality. Findings were discussed with the referring physician, Dr. Thompson, by telephone on 11/03/2022 at 2:15 PM. This study fulfills neurological imaging criteria for inclusion or exclusion of acute stroke therapies based on available published neurological imaging guidelines. Approved by: Reese Oliveira M.D. on 11/03/2022 at 14:15
--- NOTE | 2022-11-03 13:59 | DI.CT.S_ITS ---
PROCEDURE: CT ANGIO HEAD AND NECK INDICATIONS: R arm, word finding, vision TECHNIQUE: After the administration of intravenous contrast, 1 mm thick sections acquired from the aortic arch through the [place] of [place]. Post-contrast 4.5 mm thick sections then re-acquired from the foramen magnum to the vertex. 3-dimensional ntztxlm-mwsknmcvw-ctykqhdtip (MIP) and/or volume rendering reformats were acquired of the central intracranial vasculature and neck separately. For radiation dose reduction, the following was used: automated exposure control, adjustment of mA and/or kV according to patient size. COMPARISON: None. FINDINGS: Image quality: Excellent. BRAIN: CSF spaces: Ventricles are normal in size and shape. Basal cisterns are patent. No extra-axial fluid collections. Brain: No midline shift. No intracranial bleeds or masses. Man-white matter interface appears intact. Skull and face: Calvarium and facial bones appear intact, without suspicious lesions. Orbits appear normal. Sinuses: Sinuses and mastoids are clear. HEAD CT ANGIOGRAPHY: Anterior circulation: Intracranial internal carotid arteries are normal in size and flow. The flow within the paired anterior cerebral arteries is normal and symmetric. The flow within the middle cerebral arteries is normal and symmetric. The anterior communicating artery is seen. No aneurysms are seen. Posterior circulation: Slight right vertebral artery dominance. Visualized portions of the vertebral arteries demonstrate normal caliber, and join to form a normal appearing basilar artery. Flow within the posterior cerebral arteries is normal and symmetric. No aneurysms are seen. NECK CT ANGIOGRAPHY: Carotid system: The great vessels demonstrate a conventional anatomy as they arise from the aortic arch. The origins of the common carotid arteries appear patent. The common carotid arteries demonstrate normal caliber and courses. The bifurcation regions are both widely patent. The internal carotid arteries demonstrate normal calibers and courses. Posterior circulation: The origins of the vertebral arteries both appear widely patent. The more superior extracranial portions of both vertebral arteries also demonstrate normal courses and calibers. They join to form a normal appearing basilar artery. Soft tissues: Visualized neck soft tissues demonstrate no suspicious abnormalities. Bones: No suspicious bony lesions. Visualized cervical spine appears normally aligned. IMPRESSION: 1. No acute intracranial process. 2. No areas of hemodynamically significant stenosis, vascular occlusion or aneurysmal dilation within the anterior circulation. 3. No areas of hemodynamically significant stenosis, vascular occlusion or aneurysmal dilation within the posterior circulation. 4. No areas of hemodynamically significant stenosis, vascular occlusion or aneurysmal dilation within the neck vasculature. Any quantitative measurements of stenosis were performed using NASCET criteria. Dictated by: Libia Shipley M.D. on 11/03/2022 at 15:29 Approved by: Libia Shipley M.D. on 11/03/2022 at 15:32
--- NOTE | 2022-11-03 14:14 | ED_ITS ---
HPI - Neuro Symptoms/Deficit General Chief Complaint: Neuro Symptoms/Deficit Stated Complaint: lost vision in right eye,confusion,numbness r hand Time Seen by Provider: 11/03/22 13:58 History of Present Illness HPI Narrative: 42-year-old female former smoker with a history of migraines, atypical migraines, hypertension and diabetes presents with a friend and a chief complaint of what sounds like a relatively sudden onset of neurologic symptoms including some right eye vision change, possibly double vision, trouble finding words and some numbness in her hand. She states that she has had migraine headaches in the past with a similar type presentation but she typically has rather significant pain along with it. She reports at most a 2/10 headache with these symptoms. She is activated as a code stroke and taken directly to CT for plain head CT and CT angiogram. By the time she had returned she has no ongoing symptoms. On Anticoagulants: No Related Data Previous Rx's Medication Instructions Recorded Blood glucose Lancer #3 ea 05/29/21 meloxicam 15 mg tablet 15 mg PO DAILY #90 tabs 12/24/21 lisinopril 10 mg tablet 10 mg PO DAILY #90 tabs 01/11/22 ezetimibe 10 mg tablet 10 mg PO DAILY #90 tabs 07/29/22 metformin 500 mg tablet,extended 2,000 mg PO QPM #360 tabs 07/29/22 release 24 hr Glucometer #1 10/29/22 Glucometer test strips #100 ea 10/29/22 Lancettes #100 ea 10/29/22 aspirin 81 mg tablet,delayed 81 mg PO DAILY #30 tabs 11/04/22 release Allergies Allergy/AdvReac Type Severity Reaction Status Date / Time niacin Allergy Verified 11/03/22 16:49 Hfczhbz-HJT-TcP Reductase AdvReac Intermediate Muscle Verified 11/03/22 14:06 Inhibitor Aches and Pains Review of Systems Review of Systems Narrative: GENERAL: Denies chills, fatigue, malaise, fever, sweats. HEENT: Denies sinus pain, ear pain, sore throat, difficulty swallowing, dizziness. RESPIRATORY: Denies dyspnea, cough, wheezing, hemoptysis, sputum. CARDIOVASCULAR: Denies chest pain, palpitations, orthopnea, edema, GASTROINTESTINAL: Denies nausea, vomiting, abdominal pain, diarrhea, constipation, melena. : Denies dysuria, frequency, incontinence, hematuria, urinary retention. MUSCULOSKELETAL: denies weakness, joint pain, or bony pain SKIN: Denies rash, skin lesions, or other NEUROLOGIC: Denies weakness, headache, numbness, change in speech, confusion, seizures, incoordination. PSYCHIATRIC: No concerning psychosocial issues. 12 point review of systems is negative except for those stated above Hematologic/Lymphatic On Anticoagulants: No Patient History Medical History (Updated 11/03/22 @ 19:52 by Monica Cook RN) Diabetes mellitus Hypertension Migraine aura without headache (migraine equivalents) Migraine with visual aura Mixed hyperlipidemia due to type 2 diabetes mellitus Psoriasis Family History Grandfather Mental health problem Grandmother Age: 83 High cholesterol Social History household members: none Smoking Status: Former smoker alcohol intake: never Smoking Status: Former smoker alcohol intake frequency: 0-2 drinks per day Substance Use Type: does not use Exam Initial Vital Signs Initial Vital Signs: Vital Signs Temperature 97.9 F 11/03/22 13:50 Pulse Rate 62 11/03/22 13:50 Respiratory Rate 16 11/03/22 13:50 Blood Pressure 148/80 H 11/03/22 13:50 Pulse Oximetry 99 11/03/22 13:50 Oxygen Delivery Method Room Air 11/03/22 13:50 Course Orders Ordered: Discontinued Medications Acetaminophen (Acetaminophen 325 Mg Tablet) 650 mg PO Q6H PRN PRN Reason: Fever/Mild Pain (1-3) Aspirin (Aspirin Ec 81 Mg Tablet) 81 mg PO DAILY [facility] Last Admin: 11/04/22 09:20 Dose: Not Given Documented By: Admin: 11/03/22 17:50 Dose: Not Given Documented By: JAY Ezetimibe (Ezetimibe 10 Mg Tablet) 10 mg PO DAILY [facility] Last Admin: 11/04/22 09:01 Dose: Not Given Documented By: JAY Labetalol HCl (Labetalol 20 Mg/4 Ml Syringe) 10 mg IV Q5MIN PRN PRN Reason: SBP >220 or DBP >110 Melatonin (Melatonin 3 Mg Tablet) 6 mg PO BEDTIME PRN PRN Reason: Insomnia Naloxone HCl (Naloxone 0.4 Mg/Ml Vial) 0.2 mg IV Q2MIN PRN PRN Reason: Opiate Reversal Consultations Consultation #1: [id number] Radiology called with normal Head CT results Vital Signs Vital signs: Vital Signs - 8 hr 11/03/22 13:50 11/03/22 14:01 11/03/22 14:02 Temperature 97.9 F Pulse Rate 62 83 Respiratory Rate 16 Blood Pressure 148/80 H Pulse Oximetry 99 100 100 Oxygen Delivery Method Room Air 11/03/22 14:23 11/03/22 14:24 11/03/22 14:25 Temperature Pulse Rate 68 Respiratory Rate 16 Blood Pressure 149/87 H 136/87 Pulse Oximetry 96 Oxygen Delivery Method 11/03/22 14:25 11/03/22 14:25 11/03/22 14:30 Temperature Pulse Rate 69 76 Respiratory Rate 12 23 Blood Pressure 136/87 Pulse Oximetry 100 100 Oxygen Delivery Method 11/03/22 14:32 11/03/22 14:32 11/03/22 14:35 Temperature Pulse Rate 70 Respiratory Rate 12 Blood Pressure 140/83 129/80 Pulse Oximetry 100 Oxygen Delivery Method 11/03/22 14:35 11/03/22 14:40 11/03/22 14:40 Temperature Pulse Rate 68 66 Respiratory Rate 12 13 Blood Pressure 138/81 Pulse Oximetry 100 100 Oxygen Delivery Method 11/03/22 14:45 11/03/22 14:46 11/03/22 14:46 Temperature Pulse Rate 66 61 Respiratory Rate 12 15 Blood Pressure 120/78 Pulse Oximetry 100 100 Oxygen Delivery Method 11/03/22 14:50 11/03/22 14:50 11/03/22 14:55 Temperature Pulse Rate 61 Respiratory Rate 11 L Blood Pressure 116/78 117/82 Pulse Oximetry 100 Oxygen Delivery Method 11/03/22 14:55 11/03/22 15:00 11/03/22 15:00 Temperature Pulse Rate 63 63 Respiratory Rate 11 L 13 Blood Pressure 119/75 Pulse Oximetry 100 99 Oxygen Delivery Method 11/03/22 15:05 11/03/22 15:05 11/03/22 15:10 Temperature Pulse Rate 64 Respiratory Rate 13 Blood Pressure 115/77 114/73 Pulse Oximetry 99 Oxygen Delivery Method 11/03/22 15:10 11/03/22 15:15 11/03/22 15:15 Temperature Pulse Rate 65 67 Respiratory Rate 12 13 Blood Pressure 118/72 Pulse Oximetry 99 100 Oxygen Delivery Method 11/03/22 15:20 11/03/22 15:20 11/03/22 15:25 Temperature Pulse Rate 65 Respiratory Rate 15 Blood Pressure 110/71 114/70 Pulse Oximetry 100 Oxygen Delivery Method 11/03/22 15:25 11/03/22 15:30 11/03/22 15:30 Temperature Pulse Rate 63 71 Respiratory Rate 12 24 Blood Pressure 122/70 Pulse Oximetry 100 100 Oxygen Delivery Method 11/03/22 15:35 11/03/22 15:35 11/03/22 15:40 Temperature Pulse Rate 68 Respiratory Rate 20 Blood Pressure 119/75 114/76 Pulse Oximetry 99 Oxygen Delivery Method 11/03/22 15:40 11/03/22 15:45 11/03/22 15:45 Temperature Pulse Rate 70 64 Respiratory Rate 16 11 L Blood Pressure 108/75 Pulse Oximetry 99 99 Oxygen Delivery Method 11/03/22 15:50 11/03/22 15:50 11/03/22 15:55 Temperature Pulse Rate 70 Respiratory Rate 18 Blood Pressure 111/79 120/82 Pulse Oximetry 99 Oxygen Delivery Method 11/03/22 15:55 11/03/22 16:00 11/03/22 16:00 Temperature Pulse Rate 68 70 Respiratory Rate 15 15 Blood Pressure 129/83 Pulse Oximetry 98 98 Oxygen Delivery Method 11/03/22 16:05 11/03/22 16:10 11/03/22 16:15 Temperature Pulse Rate 66 69 Respiratory Rate 15 20 Blood Pressure 124/88 Pulse Oximetry 99 99 Oxygen Delivery Method 11/03/22 16:15 11/03/22 16:20 11/03/22 16:25 Temperature Pulse Rate 70 74 66 Respiratory Rate 13 17 15 Blood Pressure Pulse Oximetry 99 99 97 Oxygen Delivery Method 11/03/22 16:30 11/03/22 16:30 11/03/22 16:35 Temperature Pulse Rate 67 72 Respiratory Rate 16 16 Blood Pressure 115/76 Pulse Oximetry 97 98 Oxygen Delivery Method 11/03/22 16:40 Temperature Pulse Rate 64 Respiratory Rate 15 Blood Pressure Pulse Oximetry 98 Oxygen Delivery Method MDM - Neuro Symptoms/Deficit Lab Data 11/04/22 04:45 11/04/22 04:45 Labs: Lab Results 11/03/22 11/03/22 11/03/22 Range/Units 14:10 14:10 14:10 WBC 7.0 (4.5-11.0) X10^3/uL RBC 4.07 (4.0-5.2) X10^6/uL Hgb 12.3 (12.0-16.0) g/dL Hct 36.9 (36-46) % MCV 90.7 (80-100) fL MCH 30.3 (26-34) PG MCHC 33.5 (30-36) % RDW 13.5 (11.6-14.8) % Plt Count 296 (150-400) X10^3/uL Neut % (Auto) 54.1 (50-75) % Lymph % (Auto) 35.9 (25-40) % [place] % (Auto) 7.9 (3-14) % Eos % (Auto) 1.9 L (2-4) % Baso % (Auto) 0.2 (0-2) % Neut # (Auto) 3800 (5355-6534) /uL Lymph # (Auto) 2500 (6535-9353) /uL [place] # (Auto) 600 (0-900) /uL Eos # (Auto) 100 (0-450) /uL Baso # (Auto) 0 (0-100) /uL PT 11.3 (10.1-12.7) SECONDS INR 1.0 (0.9-1.3) APTT 31 (26-36) SECONDS Sodium 137 (137-145) mmol/L Potassium 3.8 (3.4-5.1) mmol/L Chloride 100 (98-107) mmol/L Carbon Dioxide 27 (22-32) mmol/L BUN 12 (7-17) mg/dL Creatinine 0.51 L (0.52-1.04) mg/dL Estimated GFR > 60 (>60) mL/min BUN/Creatinine Ratio 23.5 H (6-22) Glucose 104 H (70-100) mg/dL Hemoglobin A1c Hgb A1c (Ref Lab) (4.8-5.6) % Calcium 9.2 (8.4-10.2) mg/dL Total Bilirubin 0.4 (0.2-1.3) mg/dL AST 24 (14-36) IU/L ALT 18 (<35) IU/L Alkaline Phosphatase 61 (38-126) U/L Total Creatine Kinase 87 (30-135) U/L CK-MB (CK-2) TNP CK-MB (CK-2) Rel Index TNP Troponin I < 0.012 (0.01-0.034) ng/mL Total Protein 8.1 (6.3-8.2) g/dL Albumin 4.7 (3.5-5.0) g/dL Globulin 3.4 (1.7-4.1) g/dL Albumin/Globulin Ratio 1.4 (1.0-2.8) Triglycerides (35-150) mg/dL Cholesterol (140-199) mg/dL LDL Cholesterol, Calc (<100) mg/dL HDL Cholesterol (40-60) mg/dL TSH (0.47-4.68) uIU/mL Urine Color Urine Appearance Urine pH (4.5-8.0) Ur Specific [place] (1.000-1.035) Urine Protein (Negative) Urine Glucose (UA) (Negative) g/dL Urine Ketones (NEGATIVE) Urine Occult Blood (Negative) Urine Nitrate (Negative) Urine Bilirubin (NEGATIVE) Urine Urobilinogen (0.2) E.U./dL Ur Leukocyte Esterase (NEGATIVE) Urine RBC (0-5/HPF) Urine WBC (0-5/HPF) Ur Squamous Epith Cells (0-5/HPF) Urine Bacteria (None) Ur Culture Indicated? U Opiates 300ng/mL cut (Negative) Ur Oxycodone Screen (Negative) Urine Methadone Screen (Negative) Ur Barbiturates Screen (Negative) U Tricyclic Antidepress (Negative) Ur Phencyclidine Scrn (Negative) Ur Amphetamines Screen (Negative) U Methamphetamines Scrn (Negative) Ur MDMA Scrn (Ecstasy) (Negative) U Benzodiazepines Scrn (Negative) Urine Cocaine Screen (Negative) U Marijuana (THC) Screen (Negative) Ethyl Alcohol < 10 ( - 10) mg/dL 11/03/22 11/03/22 11/03/22 Range/Units 14:10 14:10 14:10 WBC (4.5-11.0) X10^3/uL RBC (4.0-5.2) X10^6/uL Hgb (12.0-16.0) g/dL Hct (36-46) % MCV (80-100) fL MCH (26-34) PG MCHC (30-36) % RDW (11.6-14.8) % Plt Count (150-400) X10^3/uL Neut % (Auto) (50-75) % Lymph % (Auto) (25-40) % [place] % (Auto) (3-14) % Eos % (Auto) (2-4) % Baso % (Auto) (0-2) % Neut # (Auto) (3732-0967) /uL Lymph # (Auto) (4622-1635) /uL [place] # (Auto) (0-900) /uL Eos # (Auto) (0-450) /uL Baso # (Auto) (0-100) /uL PT (10.1-12.7) SECONDS INR (0.9-1.3) APTT (26-36) SECONDS Sodium (137-145) mmol/L Potassium (3.4-5.1) mmol/L Chloride (98-107) mmol/L Carbon Dioxide (22-32) mmol/L BUN (7-17) mg/dL Creatinine (0.52-1.04) mg/dL Estimated GFR (>60) mL/min BUN/Creatinine Ratio (6-22) Glucose (70-100) mg/dL Hemoglobin A1c Cancelled Hgb A1c (Ref Lab) (4.8-5.6) % Calcium (8.4-10.2) mg/dL Total Bilirubin (0.2-1.3) mg/dL AST (14-36) IU/L ALT (<35) IU/L Alkaline Phosphatase (38-126) U/L Total Creatine Kinase (30-135) U/L CK-MB (CK-2) CK-MB (CK-2) Rel Index Troponin I (0.01-0.034) ng/mL Total Protein (6.3-8.2) g/dL Albumin (3.5-5.0) g/dL Globulin (1.7-4.1) g/dL Albumin/Globulin Ratio (1.0-2.8) Triglycerides 105 (35-150) mg/dL Cholesterol 198 (140-199) mg/dL LDL Cholesterol, Calc 120 H (<100) mg/dL HDL Cholesterol 57 (40-60) mg/dL TSH 1.96 (0.47-4.68) uIU/mL Urine Color Urine Appearance Urine pH (4.5-8.0) Ur Specific [place] (1.000-1.035) Urine Protein (Negative) Urine Glucose (UA) (Negative) g/dL Urine Ketones (NEGATIVE) Urine Occult Blood (Negative) Urine Nitrate (Negative) Urine Bilirubin (NEGATIVE) Urine Urobilinogen (0.2) E.U./dL Ur Leukocyte Esterase (NEGATIVE) Urine RBC (0-5/HPF) Urine WBC (0-5/HPF) Ur Squamous Epith Cells (0-5/HPF) Urine Bacteria (None) Ur Culture Indicated? U Opiates 300ng/mL cut (Negative) Ur Oxycodone Screen (Negative) Urine Methadone Screen (Negative) Ur Barbiturates Screen (Negative) U Tricyclic Antidepress (Negative) Ur Phencyclidine Scrn (Negative) Ur Amphetamines Screen (Negative) U Methamphetamines Scrn (Negative) Ur MDMA Scrn (Ecstasy) (Negative) U Benzodiazepines Scrn (Negative) Urine Cocaine Screen (Negative) U Marijuana (THC) Screen (Negative) Ethyl Alcohol ( - 10) mg/dL 11/03/22 11/03/22 11/03/22 Range/Units 14:10 15:50 15:50 WBC (4.5-11.0) X10^3/uL RBC (4.0-5.2) X10^6/uL Hgb (12.0-16.0) g/dL Hct (36-46) % MCV (80-100) fL MCH (26-34) PG MCHC (30-36) % RDW (11.6-14.8) % Plt Count (150-400) X10^3/uL Neut % (Auto) (50-75) % Lymph % (Auto) (25-40) % [place] % (Auto) (3-14) % Eos % (Auto) (2-4) % Baso % (Auto) (0-2) % Neut # (Auto) (2992-6170) /uL Lymph # (Auto) (0930-6411) /uL [place] # (Auto) (0-900) /uL Eos # (Auto) (0-450) /uL Baso # (Auto) (0-100) /uL PT (10.1-12.7) SECONDS INR (0.9-1.3) APTT (26-36) SECONDS Sodium (137-145) mmol/L Potassium (3.4-5.1) mmol/L Chloride (98-107) mmol/L Carbon Dioxide (22-32) mmol/L BUN (7-17) mg/dL Creatinine (0.52-1.04) mg/dL Estimated GFR (>60) mL/min BUN/Creatinine Ratio (6-22) Glucose (70-100) mg/dL Hemoglobin A1c Hgb A1c (Ref Lab) 6.4 H (4.8-5.6) % Calcium (8.4-10.2) mg/dL Total Bilirubin (0.2-1.3) mg/dL AST (14-36) IU/L ALT (<35) IU/L Alkaline Phosphatase (38-126) U/L Total Creatine Kinase (30-135) U/L CK-MB (CK-2) CK-MB (CK-2) Rel Index Troponin I (0.01-0.034) ng/mL Total Protein (6.3-8.2) g/dL Albumin (3.5-5.0) g/dL Globulin (1.7-4.1) g/dL Albumin/Globulin Ratio (1.0-2.8) Triglycerides (35-150) mg/dL Cholesterol (140-199) mg/dL LDL Cholesterol, Calc (<100) mg/dL HDL Cholesterol (40-60) mg/dL TSH (0.47-4.68) uIU/mL Urine Color Yellow Urine Appearance Clear Urine pH 7.5 (4.5-8.0) Ur Specific [place] 1.010 (1.000-1.035) Urine Protein Negative (Negative) Urine Glucose (UA) Negative (Negative) g/dL Urine Ketones Negative (NEGATIVE) Urine Occult Blood Negative (Negative) Urine Nitrate Negative (Negative) Urine Bilirubin Negative (NEGATIVE) Urine Urobilinogen 0.2 (0.2) E.U./dL Ur Leukocyte Esterase Negative (NEGATIVE) Urine RBC None seen (0-5/HPF) Urine WBC None seen (0-5/HPF) Ur Squamous Epith Cells 0-1 /hpf (0-5/HPF) Urine Bacteria Few (2-10) H (None) Ur Culture Indicated? Cult not indicated U Opiates 300ng/mL cut Negative (Negative) Ur Oxycodone Screen Negative (Negative) Urine Methadone Screen Negative (Negative) Ur Barbiturates Screen Negative (Negative) U Tricyclic Antidepress Negative (Negative) Ur Phencyclidine Scrn Negative (Negative) Ur Amphetamines Screen Negative (Negative) U Methamphetamines Scrn Negative (Negative) Ur MDMA Scrn (Ecstasy) Negative (Negative) U Benzodiazepines Scrn Negative (Negative) Urine Cocaine Screen Negative (Negative) U Marijuana (THC) Screen Negative (Negative) Ethyl Alcohol ( - 10) mg/dL Point of Care Testing Glucose POC 106 Discharge Plan Departure Patient Disposition: Admitted as Observation Clinical Impression: TIA (transient ischemic attack) Admit Date/Time: 11/03/22 16:41 Admit Provider: Swapnil Parker
[2022-11-03 14:25] LABS: Add Manual Diff / Slide Review NO; Basophils Absolute Auto 0 /uL (0-100); Basophils Percent Auto 0.2 % (0-2); Eosinophils Absolute Auto 100 /uL (0-450); Eosinophils Percent Auto 1.9 % (2-4); Hematocrit 36.9 % (36-46); Hemoglobin 12.3 g/dL (12.0-16.0); Lymphocytes Absolute Auto 2500 /uL (1100-4500); Lymphocytes Percent Auto 35.9 % (25-40); Mean Corpuscular HGB Conc 33.5 % (30-36); Mean Corpuscular Hemoglobin 30.3 PG (26-34); Mean Corpuscular Volume 90.7 fL (80-100); Monocytes Absolute Auto 600 /uL (0-900); Monocytes Percent Auto 7.9 % (3-14); Neutrophils Absolute Auto 3800 /uL (1500-7000); Neutrophils Percent Auto 54.1 % (50-75); Platelet Count 296 X10^3/uL (150-400); Red Blood Cell Count 4.07 X10^6/uL (4.0-5.2); Red Cell Distribution Width 13.5 % (11.6-14.8)
[2022-11-03 14:33] LABS: Prothrombin Time 11.3 SECONDS (10.1-12.7)
[2022-11-03 14:35] LABS: PTT Partial Thromboplastin Tim 31 SECONDS (26-36)
[2022-11-03 14:38] LABS: Alanine Aminotransferase 18 IU/L (<35); Albumin 4.7 g/dL (3.5-5.0); Albumin Globulin Ratio 1.4 (1.0-2.8); Alkaline Phosphatase 61 U/L (38-126); Aspartate Aminotransferase 24 IU/L (14-36); BUN Creatinine Ratio 23.5 (6-22); Bilirubin Total 0.4 mg/dL (0.2-1.3); Blood Urea Nitrogen 12 mg/dL (7-17); Calcium 9.2 mg/dL (8.4-10.2); Carbon Dioxide 27 mmol/L (22-32); Chloride 100 mmol/L (98-107); Creatine Kinase 87 U/L (30-135); Estimated Glomerular Filt Rate > 60 mL/min (>60); Ethanol (ETOH) < 10 mg/dL; Globulin 3.4 g/dL (1.7-4.1); Glucose 104 mg/dL (70-100); HEMOLYSIS < 15 (0-50); Potassium 3.8 mmol/L (3.4-5.1); Sodium 137 mmol/L (137-145); Total Protein 8.1 g/dL (6.3-8.2)
[2022-11-03 14:48] LABS: Troponin I < 0.012 ng/mL (0.01-0.034)
--- NOTE | 2022-11-03 16:44 | DI.ECHO.S_ITS ---
[facility] +---------+ : : [address] : : : : [id number] : : : : Phone: [phone]+ Echocardiogram Report + + :Name: JOEL RUIZ Study Date: 11/04/2022 Height: 65 in : :[facility] ReadingLocation: Weight: 135 lb: : Gender: Female BSA: 1.7 m2 : :: 1980 Age: 42 yrs BP: 96/62 mmHg: :Reason For Study: TIA : :Ordering Physician: ANA, : :VOLODYMYR Kilpatrick Performed By: Miriam Johnson : :Referring: VOLODYMYR PEREZ : + + Interpretation Summary The left ventricle is normal in size and wall thickness. Left ventricular systolic function appears normal without focal wall motion abnormalities. The ejection fraction is estimated to be 60-65%. Diastolic parameters suggest probable normal left ventricular diastolic function and normal filling pressures. The right ventricle is normal in size and function. Pulmonary artery pressures cannot be estimated because of the lack of a measurable TR jet velocity. The left atrium is mildly dilated. Right atrial size is normal. There is no Doppler evidence for an interatrial shunt. Injection of contrast documented no interatrial shunt. There is no significant valvular heart disease. The aortic root is normal size. Procedure: A two-dimensional transthoracic echocardiogram with color flow and Doppler was performed. A saline contrast injection was performed to assess for cardiac shunting. The study quality was technically good. Comparison is made with the echocardiogram of 04/24/2022. The patient was in sinus rhythm with heart rates between 58-69 bpm during the exam. Left Ventricle: The left ventricle is normal in size and wall thickness. Left ventricular systolic function appears normal without focal wall motion abnormalities. The ejection fraction is estimated to be 60-65%. Diastolic parameters suggest probable normal left ventricular diastolic function and normal filling pressures. Right Ventricle: The right ventricle is normal in size and function. Atria: The left atrium is mildly dilated. Right atrial size is normal. There is no Doppler evidence for an interatrial shunt. Injection of contrast documented no interatrial shunt. Mitral Valve: The mitral valve is normal in structure and function. There is trace mitral regurgitation. Aortic Valve: The aortic valve is trileaflet. The aortic valve opens well. There is no aortic valve stenosis. No aortic regurgitation is present. Tricuspid Valve: The tricuspid valve is normal in structure and function. There is trace tricuspid regurgitation. Pulmonary artery pressures cannot be estimated because of the lack of a measurable TR jet velocity. Pulmonic Valve: The pulmonic valve leaflets are thin and pliable; valve motion is normal. There is a trace or physiologic amount of pulmonic regurgitation. There is no significant valvular heart disease. Great Vessels: The aortic root is normal size. The dimensions of the ascending aorta are normal. The IVC is of normal diameter and collapses greater than 50% with a sniff. This suggests a low right atrial pressure of 3 mm Hg. Pericardium/ Pleura There is no pericardial effusion. There is no pleural effusion. MMode/2D Measurements & Calculations LVIDd: 5.1 cm LVOT diam: 2.0 cm LVIDs: 3.1 cm Ao root diam: 2.9 cm FS: 39.2 % asc Aorta Diam: 2.8 cm EPSS: 0.78 cm Ao Arch Diam (Prox Trans): 2.3 cm IVSd: 0.55 cm LVPWd: 0.67 cm LV romero. diameter/BSA (cm/m^2): 3.0 LV sys. diameter/BSA (cm/m^2): 1.8 LA A2 area: 19.6 cm2 RA long axis: 4.8 cm LA A4 area: 18.2 cm2 RA area: 14.9 cm2 LA length (vol): 5.2 cm RA vol: 39.6 ml LA vol: 58.2 ml RA : 23.6 ml/m2 LA vol index: 34.8 ml/m2 IVC diam: 1.6 cm RVD1 (basal): 3.2 cm RVD2 (mid): 2.5 cm TAPSE: 1.9 cm Doppler Measurements & Calculations Ao V2 max: 131.9 cm/sec LVOT Max Nixon: 95.4 cm/sec Ao V2 mean: 99.1 cm/sec LV V1 max P.6 mmHg Ao max P.0 mmHg LV V1 VTI: 20.7 cm Ao mean P.2 mmHg FAIZAN(I,D): 2.1 cm2 Ao V2 VTI: 30.6 cm FAIZAN(V,D): 2.3 cm2 sev ratio: 0.68 FAIZAN indexed to BSA (cm^2/m^2): 1.3 MV E max nixon: 68.0 cm/sec PA V2 max: 87.4 cm/sec MV A max nixon: 47.8 cm/sec PA V2 mean: 60.3 cm/sec MV E/A: 1.4 PA mean P.6 mmHg Med Peak E' Nixon: 9.3 cm/sec PA pr(Accel): 17.3 mmHg E/E' med: 7.3 Lat Peak E' Nixon: 14.3 cm/sec E/E' lat: 4.8 E/e' average: 6.0 MV dec time: 0.21 sec SV(LVOT): 64.9 ml Reading Physician:08:29 AM
--- NOTE | 2022-11-03 16:45 | DI.MRI.S_ITS ---
PROCEDURE: MR HEAD/BRAIN WO CON INDICATIONS: TIA TECHNIQUE: Noncontrast axial T1 spin echo, axial T2 fast spin echo, sagittal and axial FLAIR, coronal T2 fast spin echo, axial gradient echo, axial diffusion and ADC through the brain. COMPARISON: [facility], CT, CT ANGIO HEAD AND NECK, 11/03/2022, 14:16. FINDINGS: Image quality: Excellent. CSF Spaces: Basal cisterns are patent. No extra-axial fluid collections. Ventricles are normal in size and shape. Brain: No intracranial masses or hemorrhage. Man/white matter interface is normal. Brainstem appears normal. Diffusion-weighted images demonstrate no acute ischemic insult. No chronic ischemic insults. Normal intravascular flow voids are present. Skull and face: Calvarium has normal marrow signal. Orbits appear normal. Sinuses: Sinuses and mastoids are clear. IMPRESSION: 1. Negative evaluation of the brain. 2. No recent infarct. Dictated by: Katie Roe M.D. on 11/03/2022 at 17:21 Approved by: Katie Roe M.D. on 11/03/2022 at 17:35
--- NOTE | 2022-11-03 17:08 | PM.HP.1 ---
History of Present Illness History of Present Illness Chief complaint: lost vision in right eye,confusion,numbness r hand Narrative: Mayra Jackson is a 42yo F with PMH of DM2, HTN, HLD, atypical migraines, former tobacco use and psoriasis who presents with sudden-onset visual changes, word-finding difficulty and numbness in right hand. Patient felt normal this morning and then had blurry vision in right eye around 11am which then resolved. Later on she then was attempting to speak with her friend on the phone and had trouble getting words out. This also resolved. Then later she had numbness in her right hand. She denies having a headache at this time but some slight neck pain. This also resolved by the time she got to the ED. In the ED NIH of 0. She currently feels well and denies CP, SOB, NV, abd pain, or headache. [facility] Medical History (Updated 11/03/22 @ 19:52 by Monica Cook RN) Diabetes mellitus Hypertension Migraine aura without headache (migraine equivalents) Migraine with visual aura Mixed hyperlipidemia due to type 2 diabetes mellitus Psoriasis Family History Grandfather Mental health problem Grandmother Age: 83 High cholesterol Social History Smoking Status: Former smoker alcohol intake: never Meds Home Medications and Allergies Home Medications Medication Instructions Recorded Confirmed Type Blood glucose Lancer #3 ea 05/29/21 11/03/22 Rx meloxicam 15 mg tablet 15 mg PO DAILY #90 tabs 12/24/21 11/03/22 Rx lisinopril 10 mg tablet 10 mg PO DAILY #90 tabs 01/11/22 11/03/22 Rx ezetimibe 10 mg tablet 10 mg PO DAILY #90 tabs 07/29/22 11/03/22 Rx metformin 500 mg tablet,extended 2,000 mg PO QPM #360 tabs 07/29/22 11/03/22 Rx release 24 hr Glucometer #1 ea 10/29/22 11/03/22 Rx Glucometer test strips #100 ea 10/29/22 11/03/22 Rx Lancettes #100 ea 10/29/22 11/03/22 Rx Allergies Allergy/AdvReac Type Severity Reaction Status Date / Time niacin Allergy Verified 11/03/22 16:49 [id number] Reductase AdvReac Intermediate Muscle Verified 11/03/22 14:06 Inhibitor Aches and Pains Review of Systems Review of Systems Narrative: All other systems reviewed with the patient and are negative unless otherwise stated. Exam Vital Signs (past 8 hours): - 11/03/22 13:50 11/03/22 14:01 11/03/22 14:02 Temperature 97.9 F Pulse Rate 62 83 Respiratory Rate 16 Blood Pressure 148/80 H Pulse Oximetry 99 100 100 Oxygen Delivery Method Room Air 11/03/22 14:23 11/03/22 14:24 11/03/22 14:25 Temperature Pulse Rate 68 Respiratory Rate 16 Blood Pressure 149/87 H 136/87 Pulse Oximetry 96 Oxygen Delivery Method 11/03/22 14:25 11/03/22 14:25 11/03/22 14:30 Temperature Pulse Rate 69 76 Respiratory Rate 12 23 Blood Pressure 136/87 Pulse Oximetry 100 100 Oxygen Delivery Method 11/03/22 14:32 11/03/22 14:32 11/03/22 14:35 Temperature Pulse Rate 70 Respiratory Rate 12 Blood Pressure 140/83 129/80 Pulse Oximetry 100 Oxygen Delivery Method 11/03/22 14:35 11/03/22 14:40 11/03/22 14:40 Temperature Pulse Rate 68 66 Respiratory Rate 12 13 Blood Pressure 138/81 Pulse Oximetry 100 100 Oxygen Delivery Method 11/03/22 14:45 11/03/22 14:46 11/03/22 14:46 Temperature Pulse Rate 66 61 Respiratory Rate 12 15 Blood Pressure 120/78 Pulse Oximetry 100 100 Oxygen Delivery Method 11/03/22 14:50 11/03/22 14:50 11/03/22 14:55 Temperature Pulse Rate 61 Respiratory Rate 11 L Blood Pressure 116/78 117/82 Pulse Oximetry 100 Oxygen Delivery Method 11/03/22 14:55 11/03/22 15:00 11/03/22 15:00 Temperature Pulse Rate 63 63 Respiratory Rate 11 L 13 Blood Pressure 119/75 Pulse Oximetry 100 99 Oxygen Delivery Method 11/03/22 15:05 11/03/22 15:05 11/03/22 15:10 Temperature Pulse Rate 64 Respiratory Rate 13 Blood Pressure 115/77 114/73 Pulse Oximetry 99 Oxygen Delivery Method 11/03/22 15:10 11/03/22 15:15 11/03/22 15:15 Temperature Pulse Rate 65 67 Respiratory Rate 12 13 Blood Pressure 118/72 Pulse Oximetry 99 100 Oxygen Delivery Method 11/03/22 15:20 11/03/22 15:20 11/03/22 15:25 Temperature Pulse Rate 65 Respiratory Rate 15 Blood Pressure 110/71 114/70 Pulse Oximetry 100 Oxygen Delivery Method 11/03/22 15:25 11/03/22 15:30 11/03/22 15:30 Temperature Pulse Rate 63 71 Respiratory Rate 12 24 Blood Pressure 122/70 Pulse Oximetry 100 100 Oxygen Delivery Method 11/03/22 15:35 11/03/22 15:35 11/03/22 15:40 Temperature Pulse Rate 68 Respiratory Rate 20 Blood Pressure 119/75 114/76 Pulse Oximetry 99 Oxygen Delivery Method 11/03/22 15:40 11/03/22 15:45 11/03/22 15:45 Temperature Pulse Rate 70 64 Respiratory Rate 16 11 L Blood Pressure 108/75 Pulse Oximetry 99 99 Oxygen Delivery Method 11/03/22 15:50 11/03/22 15:50 11/03/22 15:55 Temperature Pulse Rate 70 Respiratory Rate 18 Blood Pressure 111/79 120/82 Pulse Oximetry 99 Oxygen Delivery Method 11/03/22 15:55 11/03/22 16:00 11/03/22 16:00 Temperature Pulse Rate 68 70 Respiratory Rate 15 15 Blood Pressure 129/83 Pulse Oximetry 98 98 Oxygen Delivery Method 11/03/22 16:05 11/03/22 16:10 11/03/22 16:15 Temperature Pulse Rate 66 69 Respiratory Rate 15 20 Blood Pressure 124/88 Pulse Oximetry 99 99 Oxygen Delivery Method 11/03/22 16:15 11/03/22 16:20 11/03/22 16:25 Temperature Pulse Rate 70 74 66 Respiratory Rate 13 17 15 Blood Pressure Pulse Oximetry 99 99 97 Oxygen Delivery Method 11/03/22 16:30 11/03/22 16:30 11/03/22 16:35 Temperature Pulse Rate 67 72 Respiratory Rate 16 16 Blood Pressure 115/76 Pulse Oximetry 97 98 Oxygen Delivery Method 11/03/22 16:40 11/03/22 16:45 11/03/22 16:45 Temperature Pulse Rate 64 64 Respiratory Rate 15 15 Blood Pressure 119/79 Pulse Oximetry 98 97 Oxygen Delivery Method 11/03/22 16:50 11/03/22 16:55 11/03/22 17:00 Temperature Pulse Rate 63 63 Respiratory Rate 16 12 Blood Pressure 116/77 Pulse Oximetry 97 98 Oxygen Delivery Method 11/03/22 17:00 Temperature Pulse Rate 68 Respiratory Rate 18 Blood Pressure Pulse Oximetry 98 Oxygen Delivery Method Oxygen Delivery Method Room Air Narrative Exam Narrative: GEN: no acute distress HEENT: moist mucous membranes, PERRL NECK: trachea midline, no JVD CV: regular rate and rhythm, no murmurs PULM: clear bilaterally ABD: soft, nontender, nondistended, no organomegaly EXT: warm and well perfused with no edema NEURO: awake, alert, oriented, no focal deficits Objective Labs 11/03/22 14:10 11/03/22 14:10 Labs: Laboratory Results - last 24 hr 11/03/22 11/03/22 11/03/22 14:10 14:10 14:10 WBC 7.0 RBC 4.07 Hgb 12.3 Hct 36.9 MCV 90.7 MCH 30.3 MCHC 33.5 RDW 13.5 Plt Count 296 Neut % (Auto) 54.1 Lymph % (Auto) 35.9 [place] % (Auto) 7.9 Eos % (Auto) 1.9 L Baso % (Auto) 0.2 Neut # (Auto) 3800 Lymph # (Auto) 2500 [place] # (Auto) 600 Eos # (Auto) 100 Baso # (Auto) 0 PT 11.3 INR 1.0 APTT 31 Sodium 137 Potassium 3.8 Chloride 100 Carbon Dioxide 27 BUN 12 Creatinine 0.51 L Estimated GFR > 60 BUN/Creatinine Ratio 23.5 H Glucose 104 H Calcium 9.2 Total Bilirubin 0.4 AST 24 ALT 18 Alkaline Phosphatase 61 Total Creatine Kinase 87 CK-MB (CK-2) TNP CK-MB (CK-2) Rel Index TNP Troponin I < 0.012 Total Protein 8.1 Albumin 4.7 Globulin 3.4 Albumin/Globulin Ratio 1.4 Ethyl Alcohol < 10 Assessment & Plan Assessment & Plan narrative: # possible TIA -presents with 2 hours of visual changes, word-finding difficulty and numbness in hand -ABCD2 score of 3 -start aspirin 81 mg daily -check A1c and lipid panel -obtain MRI brain and echo -allow permissive hypertension for 24 hour -tele # type 2 diabetes -hold home metformin, use sliding scale insulin # hypertension -hold home lisinopril for 24 hours # hyperlipidemia -continue home ezetimibe, has allergy to statins -check lipid panel # atypical migraines -per patient occured more frequently in adolescent years and she has only had a couple in 5 years since then Code status is full code. COVID negative. DVT prophylaxis with SCDs. Proxy is sister Chastity. I have reviewed home meds and used all available resources to reconcile the home meds. This patient will be admitted as observation and will require less than 2 midnights of hospital time to treat TIA workup.
[2022-11-03 17:19] LABS: Cholesterol 198 mg/dL (140-199); HDL Cholesterol 57 mg/dL (40-60); LDL Cholesterol Calculated 120 mg/dL (<100); Triglycerides 105 mg/dL (35-150)
[2022-11-03 17:50] LABS: TSH w/ Reflex to FT4 1.96 uIU/mL (0.47-4.68)
[2022-11-03 18:26] LABS: Appearance Urine UA CLEAR; Bilirubin Urine UA NEGATIVE (NEGATIVE); Color Urine UA YELLOW; Glucose Urine UA NEGATIVE (Negative); Ketones Urine UA NEGATIVE (NEGATIVE); Leukocyte Esterase Urine UA NEGATIVE (NEGATIVE); Nitrite Urine UA NEGATIVE (Negative); Occult Blood Urine UA NEGATIVE (Negative); Protein Urine UA NEGATIVE (Negative); Urobilinogen Urine UA 0.2 E.U./dL (0.2)
[2022-11-03 18:45] LABS: pH Urine UA 7.5 (4.5-8.0)
[2022-11-03 18:46] LABS: Bacteria Urine Few (2-10); Culture Indicated Urine Cult Not Indicated; RBC Urine None Seen (0-5/HPF); Squamous Epithelial Cell Urine 0-1 /HPF (0-5/HPF); WBC Urine None Seen (0-5/HPF)
[2022-11-03 18:47] LABS: Ur Creatinine Normal (Normal); Ur Specific Gravity Normal (Normal); Urine pH Normal (Normal)
[2022-11-03 18:48] LABS: UR Morphine/Opiate cutoff 300 Negative (Negative); Urine Amphetamines Negative (Negative); Urine Barbiturates Negative (Negative); Urine Benzodiazepines Negative (Negative); Urine Cocaine Negative (Negative); Urine MDMA Negative (Negative); Urine Methadone Negative (Negative); Urine Methamphetamines Negative (Negative); Urine Oxycodone Negative (Negative); Urine Phencyclidine Negative (Negative); Urine Tetrahydrocannabinol Negative (Negative); Urine Tricyclic Antidepressant Negative (Negative)
[2022-11-04] VITALS: BP 100/65; PULSE 77; RESP 18; TEMP 36.6; O2SAT 98
[2022-11-04 04:00] VITALS: BP 96/62; PULSE 61; RESP 15; TEMP 36.6; O2SAT 98
[2022-11-04 05:16] LABS: Add Manual Diff / Slide Review NO; Basophils Absolute Auto 100 /uL (0-100); Basophils Percent Auto 2.4 % (0-2); Eosinophils Absolute Auto 100 /uL (0-450); Eosinophils Percent Auto 2.4 % (2-4); Hematocrit 35.3 % (36-46); Lymphocytes Absolute Auto 2100 /uL (1100-4500); Lymphocytes Percent Auto 37.1 % (25-40); Mean Corpuscular Hemoglobin 30.3 PG (26-34); Mean Corpuscular Volume 89.1 fL (80-100); Monocytes Absolute Auto 500 /uL (0-900); Monocytes Percent Auto 9.1 % (3-14); Neutrophils Absolute Auto 2800 /uL (1500-7000); Platelet Count 265 X10^3/uL (150-400); Red Blood Cell Count 3.96 X10^6/uL (4.0-5.2); White Blood Cell Count 5.8 X10^3/uL (4.5-11.0)
[2022-11-04 05:20] LABS: Blood Urea Nitrogen 14 mg/dL (7-17); Carbon Dioxide 26 mmol/L (22-32); Chloride 103 mmol/L (98-107); Estimated Glomerular Filt Rate > 60 mL/min (>60); Glucose 109 mg/dL (70-100); HEMOLYSIS < 15 (0-50); Potassium 4.3 mmol/L (3.4-5.1); Sodium 136 mmol/L (137-145)
--- NOTE | 2022-11-04 10:45 | CM.DANOTE ---
Discharge Planning/Care Management CM Discharge Assessment Start: 11/04/22 10:38 Freq: Status: Active Protocol: Document 11/04/22 10:40 DOROTHY (Rec: 11/04/22 10:45 DOROTHY [id number]) Discharge Planning Assessment Assigned [employer] FREIDA Rowe DPAYAZ/Assigned Designee Name sister Stokes Contact Information [phone] Advance Directives? No History Provided By Patient,Medical Record Prior Living Arrangements House Household Members none Type of transporation used prior to Drives own vehicle admit Independent with ADL's Yes Is patient alert and oriented? Yes Barriers to Discharge No Comment Patient presented w/stroke like sx, admitted OBS for further work up and discharged home this morning after imaging was all neg. Patient indp and active, works fulltime and had no needs from this [employer] team Home today w/support from family as needed and recommendation for close outpatient follow up DOROTHY Discharge Plan Home Referrals Initiated None needed
--- NOTE | 2022-11-04 10:47 | PM.DS.1 ---
History of Present Illness History of Present Illness Chief complaint: lost vision in right eye,confusion,numbness r hand Narrative: Mayra Jackson is a 42yo F with PMH of DM2, HTN, HLD, atypical migraines, former tobacco use and psoriasis who presents with sudden-onset visual changes, word-finding difficulty and numbness in right hand. Patient felt normal this morning and then had blurry vision in right eye around 11am which then resolved. Later on she then was attempting to speak with her friend on the phone and had trouble getting words out. This also resolved. Then later she had numbness in her right hand. She denies having a headache at this time but some slight neck pain. This also resolved by the time she got to the ED. In the ED NIH of 0. She currently feels well and denies CP, SOB, NV, abd pain, or headache. Discharge Providers Provider Date of admission: 11/03/22 16:41 Discharge Date: 11/04/22 Primary care physician: JUAQUIN Benitez Discharge provider: Swapnil Parker DO Summary Hospital Course Discharge Diagnosis: # possible TIA -presents with 2 hours of visual changes, word-finding difficulty and numbness in hand -ABCD2 score of 3 -start aspirin 81 mg daily -A1c pending and lipid panel with LDL 120 -CTA and CT head normal -MRI brain unremarkable, echo with EF 60-65% -allow permissive hypertension for 24 hours -tele # type 2 diabetes -hold home metformin, use sliding scale insulin # hypertension -hold home lisinopril for 24 hours # hyperlipidemia -continue home ezetimibe, has allergy to statins # atypical migraines -per patient occured more frequently in adolescent years and she has only had a couple in 5 years since then Hospital Course: Admitted for possible TIA with symptoms as above. Symptoms resolved prior to ED. Workup negative with normal CTA head, CT head, MRI brain and echo. Discharged on daily aspirin. Kept on ezetimibe. Time Spent with Patient Time spent: Greater than 30 minutes Exam Vital Signs (past 8 hours): - 11/04/22 04:00 Temperature 97.9 F Pulse Rate 61 Respiratory Rate 15 Blood Pressure 96/62 Pulse Oximetry 98 Oxygen Delivery Method Room Air Oxygen Flow Rate 0 Narrative Exam Narrative: GEN: no acute distress HEENT: moist mucous membranes, PERRL NECK: trachea midline, no JVD CV: regular rate and rhythm, no murmurs PULM: clear bilaterally ABD: soft, nontender, nondistended, no organomegaly EXT: warm and well perfused with no edema NEURO: awake, alert, oriented, no focal deficits Objective Labs 11/04/22 04:45 11/04/22 04:45 Labs: Laboratory Results - last 24 hr 11/03/22 11/03/22 11/03/22 14:10 14:10 14:10 WBC 7.0 RBC 4.07 Hgb 12.3 Hct 36.9 MCV 90.7 MCH 30.3 MCHC 33.5 RDW 13.5 Plt Count 296 Neut % (Auto) 54.1 Lymph % (Auto) 35.9 [place] % (Auto) 7.9 Eos % (Auto) 1.9 L Baso % (Auto) 0.2 Neut # (Auto) 3800 Lymph # (Auto) 2500 [place] # (Auto) 600 Eos # (Auto) 100 Baso # (Auto) 0 PT 11.3 INR 1.0 APTT 31 Sodium 137 Potassium 3.8 Chloride 100 Carbon Dioxide 27 BUN 12 Creatinine 0.51 L Estimated GFR > 60 BUN/Creatinine Ratio 23.5 H Glucose 104 H Hemoglobin A1c Calcium 9.2 Total Bilirubin 0.4 AST 24 ALT 18 Alkaline Phosphatase 61 Total Creatine Kinase 87 CK-MB (CK-2) TNP CK-MB (CK-2) Rel Index TNP Troponin I < 0.012 Total Protein 8.1 Albumin 4.7 Globulin 3.4 Albumin/Globulin Ratio 1.4 Triglycerides Cholesterol LDL Cholesterol, Calc HDL Cholesterol TSH Urine Color Urine Appearance Urine pH Ur Specific Antoine Urine Protein Urine Glucose (UA) Urine Ketones Urine Occult Blood Urine Nitrate Urine Bilirubin Urine Urobilinogen Ur Leukocyte Esterase Urine RBC Urine WBC Ur Squamous Epith Cells Urine Bacteria Ur Culture Indicated? U Opiates 300ng/mL cut Ur Oxycodone Screen Urine Methadone Screen Ur Barbiturates Screen U Tricyclic Antidepress Ur Phencyclidine Scrn Ur Amphetamines Screen U Methamphetamines Scrn Ur MDMA Scrn (Ecstasy) U Benzodiazepines Scrn Urine Cocaine Screen U Marijuana (THC) Screen Ethyl Alcohol < 10 11/03/22 11/03/22 11/03/22 14:10 14:10 14:10 WBC RBC Hgb Hct MCV MCH MCHC RDW Plt Count Neut % (Auto) Lymph % (Auto) [place] % (Auto) Eos % (Auto) Baso % (Auto) Neut # (Auto) Lymph # (Auto) [place] # (Auto) Eos # (Auto) Baso # (Auto) PT INR APTT Sodium Potassium Chloride Carbon Dioxide BUN Creatinine Estimated GFR BUN/Creatinine Ratio Glucose Hemoglobin A1c Cancelled Calcium Total Bilirubin AST ALT Alkaline Phosphatase Total Creatine Kinase CK-MB (CK-2) CK-MB (CK-2) Rel Index Troponin I Total Protein Albumin Globulin Albumin/Globulin Ratio Triglycerides 105 Cholesterol 198 LDL Cholesterol, Calc 120 H HDL Cholesterol 57 TSH 1.96 Urine Color Urine Appearance Urine pH Ur Specific Antoine Urine Protein Urine Glucose (UA) Urine Ketones Urine Occult Blood Urine Nitrate Urine Bilirubin Urine Urobilinogen Ur Leukocyte Esterase Urine RBC Urine WBC Ur Squamous Epith Cells Urine Bacteria Ur Culture Indicated? U Opiates 300ng/mL cut Ur Oxycodone Screen Urine Methadone Screen Ur Barbiturates Screen U Tricyclic Antidepress Ur Phencyclidine Scrn Ur Amphetamines Screen U Methamphetamines Scrn Ur MDMA Scrn (Ecstasy) U Benzodiazepines Scrn Urine Cocaine Screen U Marijuana (THC) Screen Ethyl Alcohol 11/03/22 11/03/22 11/04/22 15:50 15:50 04:45 WBC 5.8 RBC 3.96 L Hgb 12.0 Hct 35.3 L MCV 89.1 MCH 30.3 MCHC 34.0 RDW 13.0 Plt Count 265 Neut % (Auto) 49.0 L Lymph % (Auto) 37.1 [place] % (Auto) 9.1 Eos % (Auto) 2.4 Baso % (Auto) 2.4 H Neut # (Auto) 2800 Lymph # (Auto) 2100 [place] # (Auto) 500 Eos # (Auto) 100 Baso # (Auto) 100 PT INR APTT Sodium Potassium Chloride Carbon Dioxide BUN Creatinine Estimated GFR BUN/Creatinine Ratio Glucose Hemoglobin A1c Calcium Total Bilirubin AST ALT Alkaline Phosphatase Total Creatine Kinase CK-MB (CK-2) CK-MB (CK-2) Rel Index Troponin I Total Protein Albumin Globulin Albumin/Globulin Ratio Triglycerides Cholesterol LDL Cholesterol, Calc HDL Cholesterol TSH Urine Color Yellow Urine Appearance Clear Urine pH 7.5 Ur Specific Antoine 1.010 Urine Protein Negative Urine Glucose (UA) Negative Urine Ketones Negative Urine Occult Blood Negative Urine Nitrate Negative Urine Bilirubin Negative Urine Urobilinogen 0.2 Ur Leukocyte Esterase Negative Urine RBC None seen Urine WBC None seen Ur Squamous Epith Cells 0-1 /hpf Urine Bacteria Few (2-10) H Ur Culture Indicated? Cult not indicated U Opiates 300ng/mL cut Negative Ur Oxycodone Screen Negative Urine Methadone Screen Negative Ur Barbiturates Screen Negative U Tricyclic Antidepress Negative Ur Phencyclidine Scrn Negative Ur Amphetamines Screen Negative U Methamphetamines Scrn Negative Ur MDMA Scrn (Ecstasy) Negative U Benzodiazepines Scrn Negative Urine Cocaine Screen Negative U Marijuana (THC) Screen Negative Ethyl Alcohol 11/04/22 04:45 WBC RBC Hgb Hct MCV MCH MCHC RDW Plt Count Neut % (Auto) Lymph % (Auto) [place] % (Auto) Eos % (Auto) Baso % (Auto) Neut # (Auto) Lymph # (Auto) [place] # (Auto) Eos # (Auto) Baso # (Auto) PT INR APTT Sodium 136 L Potassium 4.3 Chloride 103 Carbon Dioxide 26 BUN 14 Creatinine 0.50 L Estimated GFR > 60 BUN/Creatinine Ratio 28.0 H Glucose 109 H Hemoglobin A1c Calcium 9.0 Total Bilirubin AST ALT Alkaline Phosphatase Total Creatine Kinase CK-MB (CK-2) CK-MB (CK-2) Rel Index Troponin I Total Protein Albumin Globulin Albumin/Globulin Ratio Triglycerides Cholesterol LDL Cholesterol, Calc HDL Cholesterol TSH Urine Color Urine Appearance Urine pH Ur Specific Antoine Urine Protein Urine Glucose (UA) Urine Ketones Urine Occult Blood Urine Nitrate Urine Bilirubin Urine Urobilinogen Ur Leukocyte Esterase Urine RBC Urine WBC Ur Squamous Epith Cells Urine Bacteria Ur Culture Indicated? U Opiates 300ng/mL cut Ur Oxycodone Screen Urine Methadone Screen Ur Barbiturates Screen U Tricyclic Antidepress Ur Phencyclidine Scrn Ur Amphetamines Screen U Methamphetamines Scrn Ur MDMA Scrn (Ecstasy) U Benzodiazepines Scrn Urine Cocaine Screen U Marijuana (THC) Screen Ethyl Alcohol [facility] Medical History (Updated 11/03/22 @ 19:52 by Monica Cook RN) Diabetes mellitus Hypertension Migraine aura without headache (migraine equivalents) Migraine with visual aura Mixed hyperlipidemia due to type 2 diabetes mellitus Psoriasis Family History Grandfather Mental health problem Grandmother Age: 83 High cholesterol Social History household members: none Smoking Status: Former smoker alcohol intake: never Discharge Plan Discharge Plan Patient Disposition: Home Provider Discharge Comment: You were admitted for neurologic symptoms concerning for a potential stroke. Your symptoms resolved and brain scans were normal so they potentially could have been a TIA, but less likely given your age and overall good health. You can decide if you'd like to take a baby aspirin daily and find a new for your back pain, or not. Discharge orders & Medications Prescriptions: New aspirin 81 mg Tablet,Delayed Release (Dr/Ec) 81 mg PO DAILY Qty: 30 0RF Continued meloxicam 15 mg tablet 15 mg PO DAILY Qty: 90 3RF Rx Instructions: Take 1 tab daily for pain lisinopril 10 mg tablet 10 mg PO DAILY Qty: 90 3RF Rx Instructions: Take 1 tab in the evening daily for hypertension. (DME) Glucometer See Rx Instructions .Route .MEDSUPPLY Qty: 1 0RF Rx Instructions: Take finger stick glucose fasting each morning (DME) Glucometer test strips See Rx Instructions .Route .MEDSUPPLY Qty: 100 3RF Rx Instructions: check once a day, as needed (DME) Lancettes See Rx Instructions .Route .MEDSUPPLY Qty: 100 3RF Rx Instructions: Take finger stick glucose fasting each morning (DME) Blood glucose Lancer See Rx Instructions .Route .MEDSUPPLY Qty: 3 3RF Rx Instructions: Take finger stick glucose fasting 4-5x/day metformin 500 mg tablet extended release 24 hr 2,000 mg PO QPM Qty: 360 3RF Rx Instructions: Take 4 tab (2000mg) with evening meal ezetimibe 10 mg tablet 10 mg PO DAILY Qty: 90 3RF Rx Instructions: Take 1 tab daily for cholesterol. Follow up/Referrals: Sveta Bonds ARNP [Primary Care Provider] - 11/18/22 2:30 pm (Appt:11/18 @ 2:30 with kate ugalde please arrive 15 min prior to your scheduled appointment time ) Visit Report/Discharge Packet Instructions: DI for Transient Ischemic Attack Stand Alone Forms: Patient Portal/API, Stroke Signs & Symptoms Discharge Data Primary Care Provider: Sveta Bonds Attending Provider: Swapnil Parker Admit Date/Time: 11/03/22 16:41 Discharges patient from system. Discharge Date/Time: 11/04/22 09:50 Quality VTE Deep Vein Thrombosis/Pulmonary Embolism Present on Admission: No
[2022-11-04 22:22] LABS: Labcorp Hemoglobin (Hb) A1c 6.4 % (4.8-5.6)
== END 2022-11-04 09:50 | disposition home or self-care (01) ==
LOC: ED 13:58 → AC 16:42
PROVIDERS: Admitting Provider Student in an Organized Health Care Education/Training Program; Emergency Provider Emergency Medicine; PCP Nurse Practitioner; Visit Provider Student in an Organized Health Care Education/Training Program
DX: H53.9 Unspecified visual disturbance (principal); R47.02 Dysphasia; R20.0 Anesthesia of skin; R41.0 Disorientation, unspecified; R29.700 NIHSS score 0; I10 Essential (primary) hypertension; E78.5 Hyperlipidemia, unspecified; G43.809 Other migraine, not intractable, without status migrainosus; E11.9 Type 2 diabetes mellitus without complications; Z79.84 Long term (current) use of oral hypoglycemic drugs
CPT/HCPCS: 36415; 70450; 70496; 70498; 70551; 80048; 80053; 80061; 80305; 80320; 81001; 82550; 82962; 83036; 84443; 84484; 85025; 85610; 85730; 93005; 93010; 93306; 99285; G0378

== ENCOUNTER → 2022-11-12 08:06 | Outpatient (CLI) | payer OTHER, SELFPAY ==
[2022-11-03 17:18] VITALS: BMI 21.4
[2022-11-12 09:22] LABS: Vitamin D 25 Hydroxy (D3) 48.8 ng/mL (30.0-100.0)
== END ==
PROVIDERS: PCP Nurse Practitioner; Referring Provider Nurse Practitioner; Visit Provider Nurse Practitioner
DX: Z78.9 Other specified health status (principal)
CPT/HCPCS: 36415; 82306

== ENCOUNTER → 2023-01-12 07:53 | Outpatient (CLI) | payer OTHER, SELFPAY ==
[2022-11-03 17:18] VITALS: BMI 21.4
[2023-01-12 08:39] LABS: Alanine Aminotransferase 16 IU/L (<35); Albumin 4.1 g/dL (3.5-5.0); Albumin Globulin Ratio 1.5 (1.0-2.8); Alkaline Phosphatase 66 U/L (38-126); Aspartate Aminotransferase 24 IU/L (14-36); BUN Creatinine Ratio 22.8 (6-22); Bilirubin Total 0.3 mg/dL (0.2-1.3); Blood Urea Nitrogen 13 mg/dL (7-17); Calcium 9.1 mg/dL (8.4-10.2); Carbon Dioxide 27 mmol/L (22-32); Chloride 104 mmol/L (98-107); Cholesterol 177 mg/dL (140-199); Estimated Glomerular Filt Rate > 60 mL/min (>60); Globulin 2.7 g/dL (1.7-4.1); Glucose 93 mg/dL (70-100); HDL Cholesterol 54 mg/dL (40-60); HEMOLYSIS < 15 (0-50); LDL Cholesterol Calculated 109 mg/dL (<100); Potassium 4.3 mmol/L (3.4-5.1); Sodium 136 mmol/L (137-145); Total Protein 6.8 g/dL (6.3-8.2); Triglycerides 70 mg/dL (35-150)
[2023-01-12 08:43] LABS: Microalbumi Creatinin Ratio Ur 8.7 ug/mg CR (<30); Microalbumin Urine Random 0.8 mg/dL (0-1.6)
[2023-01-12 08:55] LABS: Free T3, Triiodothyronine Free 3.51 pg/mL (2.77-5.27)
[2023-01-12 09:08] LABS: Thyroid Stimulating Hormone 1.52 uIU/mL (0.47-4.68)
[2023-01-13 02:57] LABS: x Labcorp Estim. Avg Glu (eAG) 134 mg/dL (.); x Labcorp Hemoglobin A1c 6.3 % (4.8-5.6)
== END ==
PROVIDERS: PCP Nurse Practitioner; Referring Provider Nurse Practitioner; Visit Provider Nurse Practitioner
DX: E11.69 Type 2 diabetes mellitus with other specified complication (principal); E78.2 Mixed hyperlipidemia; E11.9 Type 2 diabetes mellitus without complications; Z79.899 Other long term (current) drug therapy; I10 Essential (primary) hypertension
CPT/HCPCS: 36415; 80053; 80061; 82043; 82570; 83036; 84439; 84443; 84481

== ENCOUNTER → 2023-04-14 06:56 | Outpatient (CLI) | payer OTHER, SELFPAY ==
[2022-11-03 17:18] VITALS: BMI 21.4
[2023-04-14 08:28] LABS: Hemoglobin A1C% w Est Avg Glu 6.6 % (4.0-6.0)
[2023-04-14 08:40] LABS: Alanine Aminotransferase 16 IU/L (<35); Albumin 4.8 g/dL (3.5-5.0); Albumin Globulin Ratio 1.7 (1.0-2.8); Alkaline Phosphatase 50 U/L (38-126); Aspartate Aminotransferase 25 IU/L (14-36); BUN Creatinine Ratio 16.4 (6-22); Bilirubin Total 0.5 mg/dL (0.2-1.3); Blood Urea Nitrogen 11 mg/dL (7-17); Calcium 10.1 mg/dL (8.4-10.2); Carbon Dioxide 24 mmol/L (22-32); Chloride 104 mmol/L (98-107); Cholesterol 176 mg/dL (140-199); Estimated Glomerular Filt Rate > 60 mL/min (>60); Globulin 2.9 g/dL (1.7-4.1); Glucose 128 mg/dL (70-100); HDL Cholesterol 62 mg/dL (40-60); HEMOLYSIS < 15 (0-50); LDL Cholesterol Calculated 98 mg/dL (<100); Potassium 5.3 mmol/L (3.4-5.1); Sodium 137 mmol/L (137-145); Total Protein 7.7 g/dL (6.3-8.2); Triglycerides 78 mg/dL (35-150)
== END ==
PROVIDERS: PCP Nurse Practitioner; Referring Provider Nurse Practitioner; Visit Provider Nurse Practitioner
DX: E11.9 Type 2 diabetes mellitus without complications (principal); E11.69 Type 2 diabetes mellitus with other specified complication; E78.2 Mixed hyperlipidemia; Z79.899 Other long term (current) drug therapy
CPT/HCPCS: 36415; 80053; 80061; 83036

== ENCOUNTER → 2023-07-20 06:36 | Outpatient (CLI) | payer OTHER, SELFPAY ==
[2022-11-03 17:18] VITALS: BMI 21.4
[2023-07-20 08:02] LABS: Hemoglobin A1C% w Est Avg Glu 6.1 % (4.0-6.0)
[2023-07-20 08:11] LABS: Alanine Aminotransferase 15 IU/L (<35); Albumin 4.4 g/dL (3.5-5.0); Albumin Globulin Ratio 1.4 (1.0-2.8); Alkaline Phosphatase 57 U/L (38-126); Aspartate Aminotransferase 27 IU/L (14-36); BUN Creatinine Ratio 18.2 (6-22); Bilirubin Total 0.5 mg/dL (0.2-1.3); Blood Urea Nitrogen 10 mg/dL (7-17); Calcium 9.6 mg/dL (8.4-10.2); Carbon Dioxide 28 mmol/L (22-32); Chloride 105 mmol/L (98-107); Cholesterol 136 mg/dL (140-199); Estimated Glomerular Filt Rate > 60 mL/min (>60); Globulin 3.1 g/dL (1.7-4.1); Glucose 114 mg/dL (70-100); HDL Cholesterol 51 mg/dL (40-60); HEMOLYSIS < 15 (0-50); LDL Cholesterol Calculated 74 mg/dL (<100); Potassium 4.4 mmol/L (3.4-5.1); Sodium 140 mmol/L (137-145); Total Protein 7.5 g/dL (6.3-8.2); Triglycerides 54 mg/dL (35-150)
[2023-07-20 08:27] LABS: Free T3, Triiodothyronine Free 3.47 pg/mL (2.77-5.27); Free T4, Direct Thyroxine 1.02 ng/dL (0.78-2.19)
[2023-07-20 08:40] LABS: Thyroid Stimulating Hormone 1.22 uIU/mL (0.47-4.68)
[2023-07-21 19:13] LABS: Creatinine Urine Random 41.9 mg/dL
[2023-07-21 19:37] LABS: Microalbumin Urine Random < 0.6 mg/dL (0-1.6)
== END ==
PROVIDERS: PCP Nurse Practitioner; Referring Provider Nurse Practitioner; Visit Provider Nurse Practitioner
DX: R68.89 Other general symptoms and signs (principal); E11.69 Type 2 diabetes mellitus with other specified complication; E78.2 Mixed hyperlipidemia; I10 Essential (primary) hypertension
CPT/HCPCS: 36415; 80053; 80061; 82043; 82570; 83036; 84439; 84443; 84481

== ENCOUNTER → 2023-10-26 06:51 | Outpatient (CLI) | payer OTHER, SELFPAY ==
[2023-09-09 13:38] VITALS: BMI 21.4
[2023-10-26 07:45] LABS: Hemoglobin A1C% w Est Avg Glu 6.5 % (4.0-6.0)
[2023-10-26 07:52] LABS: Alanine Aminotransferase 23 IU/L (<35); Albumin 4.6 g/dL (3.5-5.0); Albumin Globulin Ratio 1.6 (1.0-2.8); Alkaline Phosphatase 60 U/L (38-126); Aspartate Aminotransferase 41 IU/L (14-36); BUN Creatinine Ratio 15.8 (6-22); Bilirubin Total 0.5 mg/dL (0.2-1.3); Blood Urea Nitrogen 9 mg/dL (7-17); Calcium 9.4 mg/dL (8.4-10.2); Carbon Dioxide 25 mmol/L (22-32); Chloride 107 mmol/L (98-107); Cholesterol 151 mg/dL (140-199); Estimated Glomerular Filt Rate > 60 mL/min (>60); Globulin 2.8 g/dL (1.7-4.1); Glucose 112 mg/dL (70-100); HDL Cholesterol 54 mg/dL (40-60); HEMOLYSIS < 15 (0-50); LDL Cholesterol Calculated 83 mg/dL (<100); Sodium 139 mmol/L (137-145); Total Protein 7.4 g/dL (6.3-8.2); Triglycerides 68 mg/dL (35-150)
[2023-10-26 08:04] LABS: Free T3, Triiodothyronine Free 3.18 pg/mL (2.77-5.27)
[2023-10-26 08:18] LABS: Thyroid Stimulating Hormone 1.25 uIU/mL (0.47-4.68)
== END ==
PROVIDERS: PCP Nurse Practitioner; Referring Provider Nurse Practitioner; Visit Provider Nurse Practitioner
DX: E11.9 Type 2 diabetes mellitus without complications (principal); I10 Essential (primary) hypertension; E11.69 Type 2 diabetes mellitus with other specified complication; E78.2 Mixed hyperlipidemia; Z79.899 Other long term (current) drug therapy
CPT/HCPCS: 36415; 80053; 80061; 83036; 84439; 84443; 84481

== ENCOUNTER → 2024-01-30 07:51 | Outpatient (CLI) | payer OTHER, SELFPAY ==
[2023-09-09 13:38] VITALS: BMI 21.4
[2024-01-30 08:39] LABS: Hematocrit 36.9 % (36-46); Hemoglobin 12.3 g/dL (12.0-16.0); Mean Corpuscular HGB Conc 33.3 % (30-36); Mean Corpuscular Hemoglobin 30.3 PG (26-34); Mean Corpuscular Volume 90.9 fL (80-100); Platelet Count 271 X10^3/uL (150-400); Red Blood Cell Count 4.06 X10^6/uL (4.0-5.2); Red Cell Distribution Width 13.4 % (11.6-14.8); White Blood Cell Count 5.6 X10^3/uL (4.5-11.0)
[2024-01-30 08:45] LABS: Hemoglobin A1C% w Est Avg Glu 5.9 % (4.0-6.0)
[2024-01-30 08:47] LABS: Alanine Aminotransferase 17 IU/L (<35); Albumin 4.5 g/dL (3.5-5.0); Albumin Globulin Ratio 1.7 (1.0-2.8); Alkaline Phosphatase 55 U/L (38-126); Aspartate Aminotransferase 29 IU/L (14-36); Bilirubin Total 0.5 mg/dL (0.2-1.3); Blood Urea Nitrogen 13 mg/dL (7-17); Calcium 9.6 mg/dL (8.4-10.2); Carbon Dioxide 25 mmol/L (22-32); Chloride 106 mmol/L (98-107); Cholesterol 151 mg/dL (140-199); Estimated Glomerular Filt Rate > 60 mL/min (>60); Globulin 2.6 g/dL (1.7-4.1); Glucose 114 mg/dL (70-100); HDL Cholesterol 55 mg/dL (40-60); HEMOLYSIS < 15 (0-50); LDL Cholesterol Calculated 83 mg/dL (<100); Sodium 139 mmol/L (137-145); Total Protein 7.1 g/dL (6.3-8.2); Triglycerides 63 mg/dL (35-150)
[2024-01-30 09:04] LABS: Free T3, Triiodothyronine Free 2.99 pg/mL (2.77-5.27)
[2024-01-30 09:18] LABS: Thyroid Stimulating Hormone 1.43 uIU/mL (0.47-4.68)
[2024-01-30 09:31] LABS: Neutrophils Absolute Manual 3360 /uL (3000-5900); RBC Morphology Normal Morphology; Total Cells Counted 100
== END ==
PROVIDERS: PCP Nurse Practitioner; Referring Provider Nurse Practitioner; Visit Provider Nurse Practitioner
DX: Z00.00 Encounter for general adult medical examination without abnormal findings (principal); E11.69 Type 2 diabetes mellitus with other specified complication; E78.2 Mixed hyperlipidemia; E11.9 Type 2 diabetes mellitus without complications
CPT/HCPCS: 36415; 80053; 80061; 83036; 84439; 84443; 84481; 85025

== ENCOUNTER → 2024-07-16 07:44 | Outpatient (CLI) | payer OTHER, SELFPAY ==
[2023-09-09 13:38] VITALS: BMI 21.4
[2024-07-16 08:45] LABS: Add Manual Diff / Slide Review NO; Basophils Absolute Auto 100 /uL (0-100); Basophils Percent Auto 2.2 % (0-2); Eosinophils Absolute Auto 100 /uL (0-450); Eosinophils Percent Auto 1.2 % (2-4); Hematocrit 36.5 % (36-46); Hemoglobin 12.1 g/dL (12.0-16.0); Lymphocytes Absolute Auto 1600 /uL (1100-4500); Lymphocytes Percent Auto 24.8 % (25-40); Mean Corpuscular HGB Conc 33.2 % (30-36); Mean Corpuscular Hemoglobin 30.3 PG (26-34); Mean Corpuscular Volume 91.5 fL (80-100); Monocytes Absolute Auto 400 /uL (0-900); Monocytes Percent Auto 6.5 % (3-14); Neutrophils Absolute Auto 4200 /uL (1500-7000); Neutrophils Percent Auto 65.3 % (50-75); Platelet Count 279 X10^3/uL (150-400); Red Blood Cell Count 3.99 X10^6/uL (4.0-5.2); Red Cell Distribution Width 13.4 % (11.6-14.8); White Blood Cell Count 6.5 X10^3/uL (4.5-11.0)
[2024-07-16 09:00] LABS: HEMOLYSIS < 15 (0-50); Iron 67 ug/dL (37-170)
[2024-07-16 09:01] LABS: Cholesterol 156 mg/dL (140-199); HDL Cholesterol 61 mg/dL (40-60); LDL Cholesterol Calculated 85 mg/dL (<100); Triglycerides 50 mg/dL (35-150)
[2024-07-16 09:03] LABS: Hemoglobin A1C% w Est Avg Glu 5.9 % (4.0-6.0)
[2024-07-16 09:13] LABS: Percent Iron Saturation 19 % (15-50); Total Iron Binding Capacity 359 ug/dL (265-497); Transferrin 312 mg/dL (206-381)
[2024-07-16 09:17] LABS: Vitamin D 25 Hydroxy (D3) 110 ng/mL (30.0-100.0)
[2024-07-16 09:20] LABS: Free T3, Triiodothyronine Free 3.25 pg/mL (2.77-5.27); Free T4, Direct Thyroxine 0.94 ng/dL (0.78-2.19)
[2024-07-16 09:32] LABS: Thyroid Stimulating Hormone 1.39 uIU/mL (0.47-4.68)
[2024-07-16 09:53] LABS: Vitamin B12 593 pg/mL (239-931)
== END ==
PROVIDERS: PCP Nurse Practitioner; Referring Provider Nurse Practitioner; Visit Provider Nurse Practitioner
DX: R53.83 Other fatigue (principal); E11.69 Type 2 diabetes mellitus with other specified complication; E78.2 Mixed hyperlipidemia; I10 Essential (primary) hypertension; Z86.73 Personal history of transient ischemic attack (TIA), and cerebral infarction without residual deficits
CPT/HCPCS: 36415; 80061; 82306; 82607; 83036; 83540; 83550; 84439; 84443; 84481; 85025

== ENCOUNTER → 2024-10-14 10:51 | Outpatient (CLI) | payer OTHER, SELFPAY ==
[2023-09-09 13:38] VITALS: BMI 21.4
[2024-10-14 12:29] LABS: Add Manual Diff / Slide Review NO; Basophils Absolute Auto 100 /uL (0-100); Eosinophils Absolute Auto 0 /uL (0-450); Eosinophils Percent Auto 0.2 % (2-4); Hematocrit 36.1 % (36-46); Hemoglobin 12.2 g/dL (12.0-16.0); Lymphocytes Absolute Auto 1800 /uL (1100-4500); Lymphocytes Percent Auto 16.3 % (25-40); Mean Corpuscular HGB Conc 33.8 % (30-36); Mean Corpuscular Hemoglobin 30.8 PG (26-34); Mean Corpuscular Volume 91.1 fL (80-100); Monocytes Absolute Auto 600 /uL (0-900); Monocytes Percent Auto 5.6 % (3-14); Neutrophils Absolute Auto 8500 /uL (1500-7000); Neutrophils Percent Auto 76.9 % (50-75); Platelet Count 284 X10^3/uL (150-400); Red Blood Cell Count 3.96 X10^6/uL (4.0-5.2); Red Cell Distribution Width 13.9 % (11.6-14.8); White Blood Cell Count 11.1 X10^3/uL (4.5-11.0)
[2024-10-14 12:59] LABS: Alanine Aminotransferase 21 IU/L (<35); Albumin 4.6 g/dL (3.5-5.0); Albumin Globulin Ratio 1.6 (1.0-2.8); Alkaline Phosphatase 59 U/L (38-126); Aspartate Aminotransferase 30 IU/L (14-36); BUN Creatinine Ratio 17.9 (6-22); Bilirubin Total 0.7 mg/dL (0.2-1.3); Blood Urea Nitrogen 12 mg/dL (7-17); Calcium 9.8 mg/dL (8.4-10.2); Carbon Dioxide 26 mmol/L (22-32); Chloride 102 mmol/L (98-107); Estimated Glomerular Filt Rate > 60 mL/min (>60); Globulin 2.9 g/dL (1.7-4.1); Glucose 113 mg/dL (70-99); HEMOLYSIS < 15 (0-50); Sodium 138 mmol/L (137-145); Total Protein 7.5 g/dL (6.3-8.2)
== END ==
PROVIDERS: PCP Nurse Practitioner; Referring Provider Nurse Practitioner; Visit Provider Nurse Practitioner
DX: R10.9 Unspecified abdominal pain (principal); R14.0 Abdominal distension (gaseous); R11.0 Nausea
CPT/HCPCS: 36415; 80053; 85025

== ENCOUNTER → 2024-10-18 06:05 | Outpatient (CLI) | payer OTHER, SELFPAY ==
[2023-09-09 13:38] VITALS: BMI 21.4
--- NOTE | 2024-10-18 06:07 | DI.CT.S_ITS ---
PROCEDURE: CT ABDOMEN PELVIS W CON INDICATIONS: PALPABLE MASS PELVIS, ABD PAIN,CRAMPING,BLOATING TECHNIQUE: After the administration of intravenous contrast, axial sections acquired from the lung bases to the pubic symphysis. Coronal and sagittal reformats were performed. For radiation dose reduction, the following was used: automated exposure control, adjustment of mA and/or kV according to patient size. COMPARISON: None. FINDINGS: Image quality: Diagnostic. Lower Chest: No pleural effusion. ABDOMEN: Liver: No solid mass. Gallbladder: No radiopaque gallstones or wall thickening. Biliary ducts: No biliary dilation. Pancreas: No ductal dilation. Spleen: Size is within normal limits. Adrenal Glands: No adrenal nodules. Kidneys and Ureters: Horseshoe kidney. No hydronephrosis. No solid mass. No complex renal cystic lesion which requires follow up. Stomach and Bowel: Normal colonic caliber, without significant wall thickening. Normal appendix. Peritoneum: No abnormal intraperitoneal fluid. No free air. Ventral Wall: No significant ventral hernia. Abdominal Nodes: No retroperitoneal or mesenteric adenopathy by size criteria. Vessels: Aorta and inferior vena cava are normal in size. PELVIS: Pelvic Organs: Enlarged fibroid uterus measuring 13.4 cm in length. A larger fibroid at the lower uterus measuring approximately 6.8 cm. Possible left ovarian cyst measuring 4.3 cm. Possible right ovarian cyst measuring 2.6 cm, (2/102). Bladder: No bladder wall thickening, accounting for underdistention. No stone. Pelvic Nodes: No enlarged lymph nodes. Miscellaneous: No inguinal hernias are seen. Bones: No aggressive osseous abnormality. Disc space height loss at L4-L5. IMPRESSION: 1. Suspected bilateral ovarian cysts. Left ovarian cyst measures approximately 4.3 cm. -Recommend pelvic ultrasound for further evaluation. 2. Enlarged bulky fibroid uterus. 3. Incidental horseshoe kidney. 4. Normal appendix. No free fluid. Dictated by: Aston De Anda M.D. on 10/18/2024 at 8:33 Approved by: Aston De Anda M.D. on 10/18/2024 at 8:42
== END ==
LOC: CT 06:06
PROVIDERS: PCP Nurse Practitioner; Referring Provider Nurse Practitioner; Visit Provider Nurse Practitioner
DX: D25.9 Leiomyoma of uterus, unspecified (principal); Q63.1 Lobulated, fused and horseshoe kidney; R19.00 Intra-abdominal and pelvic swelling, mass and lump, unspecified site; R10.9 Unspecified abdominal pain; D72.829 Elevated white blood cell count, unspecified; R14.0 Abdominal distension (gaseous)
CPT/HCPCS: 74177; Q9967

== ENCOUNTER → 2024-10-27 06:36 | Outpatient (CLI) | payer OTHER, SELFPAY ==
[2023-09-09 13:38] VITALS: BMI 21.4
--- NOTE | 2024-10-27 06:37 | DI.US.S_ITS ---
PROCEDURE: US PELVIC COMPLETE INDICATIONS: FIBROIDS, OVARIAN CYSTS ON CT TECHNIQUE: Real-time scanning was performed of the pelvic organs, with image documentation. Additional endovaginal scanning was necessary due to incomplete visualization of the adnexal and endometrial structures by transabdominal scanning. COMPARISON: [facility], CT, CT ABDOMEN PELVIS W CON, 10/18/2024, 7:29. FINDINGS: Uterus: Uterus is anteverted and increased in size at 13.6 x 8.0 x 9.3 cm. The myometrium is heterogeneous. The endometrium measures 6.8 mm combined thickness. Right intramural fibroid measuring 5.3 x 6.1 x 5.0 cm. Right posterior intramural fibroid measuring 5.8 x 6 1 x 5.9 cm. Ovaries: The right ovary is not seen. The left ovary measures 5.5 x 3.2 x 3.9 cm, with a calculated ovarian volume of 36.2 cc. Complex left ovarian cyst measuring 2.4 x 3.9 x 2.4 cm. Less than 12 follicles can be seen in the left ovary. No adnexal masses are seen. Other: No pathologic free abdominal or pelvic fluid. IMPRESSION: Complex left ovarian cyst, possibly hemorrhagic measuring to 3.9 cm. Recommend follow-up ultrasound in 6-12 weeks. Large uterine fibroids as above. Right ovary is not seen We strive to produce accurate, complete, and clear reports of imaging services. To assist us in improving patient care, this report was composed using standard report templates and voice recognition software. Therefore, it may contain abnormal punctuation, insertions and/or omissions. Occasional wrong-word or sound-alike substitutions may occur. Though we review the report and make efforts to correct it, we do recommend that the report be read carefully in proper context to recognize any text inaccuracies. Dictated by: Dinesh Benavides M.D. on 10/27/2024 at 8:12 Approved by: Dinesh Benavides M.D. on 10/27/2024 at 8:18
== END ==
LOC: US 06:36
PROVIDERS: PCP Nurse Practitioner; Referring Provider Obstetrics & Gynecology; Visit Provider Obstetrics & Gynecology
DX: N83.292 Other ovarian cyst, left side (principal); D25.1 Intramural leiomyoma of uterus; N92.6 Irregular menstruation, unspecified; R10.2 Pelvic and perineal pain
CPT/HCPCS: 76830; 76856

== ENCOUNTER 2024-12-12 08:25 | Day surgery (SDC) | payer OTHER, SELFPAY ==
[2023-09-09 13:38] VITALS: BMI 21.4
[2024-12-02 09:37] VITALS: BMI 23.8
[2024-12-12] VITALS (15 sets, daily range): BP systolic 85–126; BP diastolic 40–81; PULSE 51–76; RESP 10–24; TEMP 35.7–36.7; O2SAT 93–100; BMI 23.6
--- NOTE | 2024-12-12 | PATH_ITS ---
[facility] Accession Number: [id number] No. of containers..01 Tissue . 01 Material submitted: . uterus - UTERUS, BILATERAL FALLOPIAN TUBES, LEFT OVARY . 01 Diagnosis: UTERUS, BILATERAL FALLOPIAN TUBES, AND LEFT OVARY, SUPRACERVICAL HYSTERECTOMY, BILATERAL SALPINGECTOMY, AND LEFT OOPHORECTOMY: Uterus with leiomyomas (up to 7.8 cm) and proliferative endometrium. Left ovary with endometriosis and endometrioma. Histologically unremarkable bilateral fimbriated fallopian tubes. Negative for malignancy. [facility] 12/15/2024 1655 Local . 01 Electronically signed: . Ladi Terry DO, Pathologist NPI- [id number] . 01 Gross description: . Received in formalin with two identifiers and uterus and bilateral fallopian tubes, left ovary, is a disrupted, irregularly shaped uterus (144 grams, 9.4 x 6.6 x 4.7 cm, due to the irregularly shaped nature of the specimen orientation cannot be determined), two separate shelled out white whorled nodules (151 grams, 7.8 x 6.4 x 6.1 cm and 90 grams, 6.1 x 5.9 x 4.7 cm), presumed left fallopian tube (6.4 x 0.7 cm) adhered to a disrupted irregular presumed ovary (28 grams, 5.2 x 4.0 x 3.6 cm) and detached presumed right fallopian tube (5.0 x 0.9 cm), with no additional adnexa or cervix identified. . The uterine serosa is diffusely ragged, hemorrhagic, and disrupted, and is inked blue. The presumed cervical margin is inked green. The segment of presumed endocervical canal measures 1.1 cm in length. The endometrial cavity is distorted with no distinct cornua identified and measuring 4.2 cm in length by 0.9 cm in average width. The endometrium is pink-zhang and velvety, averaging 0.3 cm thick. Two hemorrhagic cavities are identified, one is located at the presumed fundus opening to the serosal surface measuring 3.4 x 2.5 x 2.0 cm while the second is in the presumed lower uterine segment open to the serosal surface measuring 3.7 x 2.5 x 1.7 cm. The myometrium is zhang and trabecular, measuring up to 2.9 cm in maximum thickness with multiple intramural, well-circumcised white whorled nodules ranging from 0.2 to 1.7 cm in greatest dimension. No hemorrhagic or necrosis is identified in the intramural or the shelled out nodules. . Both tubes have violaceous, smooth serosa with cystic structures on the presumed right tube up to 0.2 cm in greatest dimension filled with clear serous fluid. The lumens are stellate and unremarkable. . The external surface of the presumed ovary is hemorrhagic and ragged with several disrupted areas. The external surface is inked black, and sectioning reveals several smooth-walled cystic structures with contents ranging from clear and serous to slightly viscous and hemorrhagic. The cysts range in size from 0.2 to 3.1 cm in greatest dimension with the largest cyst having a slightly hemorrhagic internal surface and is grossly ruptured to the external surface of the ovary. No normal ovarian parenchyma is grossly identified. Submersible Pilot sections are submitted as follows: . A1-A2: Full thickness sections with nodules and hemorrhagic cavity in A1. A3: Second hemorrhagic cavity. A4-A5: Largest of shelled out nodules. A6-A7: Smallest of shelled out nodules. A8-A9: Intramural nodules. A10: Left fallopian tube to include one-half of bisected fimbriae and cross sections. A11: Right fallopian tube to include one-half of bisected fimbriae and cross sections. A12-A13: Presumed left ovary with cysts. ([id number]) /MRV 12/13/2024 1511 Local . 01 Pathologist provided ICD-10: N85.2, N80.102, D25.9 . 01 CPT . 263276 Specimen Comment: A courtesy copy of this report has been sent to [phone] Performed at: [address] [address], [place], [place] [id number] MD Markos Foley MD Phone: [phone]
--- NOTE | 2024-12-12 06:59 | PM.PREOP ---
Pre-operative Note Interval Note History & Physical reviewed/Exam performed by Physician: Yes Changes to H&P: No H&P completed within 30 days and has changed as indicated here:: 11/18/24
[2024-12-12] MEDS: FAMOTIDINE 20 MG/2 ML VIAL IV (09:42)
[2024-12-12] MEDS: SCOPOLAMINE 1 PATCH TOP (09:42)
[2024-12-12] MEDS: LACTATED RINGERS 1,000 ML 42 ML IV ×2 (09:42→12:32)
[2024-12-12] MEDS: CEFAZOLIN 2 GM/100 ML PREMIX 100 ML IV (10:38)
--- NOTE | 2024-12-12 11:07 | SUR.OPER ---
Lithotomy on padded OR bed. [place] Pad Positioner under torso. Head on pillow, arms padded and tucked at sides. Legs secured in padded yellow fins stirrups. Anesthesia in room at positioning, all pressure points padded and covered, Dr. smith in room at final position and approved.
[2024-12-12] MEDS: ACETAMINOPHEN IV 1,000 MG/100 ML VIAL 400 MG IV (12:08)
[2024-12-12] MEDS: VASOPRESSIN 20 UNIT/ML VIAL INJ (12:10)
[2024-12-12] MEDS: BUPIVACAINE 0.5% W/ EPI (PF) 30 ML VIAL INJ (12:10)
[2024-12-12] MEDS: SODIUM CHLORIDE 0.9% 100 ML 30 ML INJ (12:17)
[2024-12-12] MEDS: BUPIVACAINE LIPOSOME 266 MG/20 ML VIAL INJ (12:32)
--- NOTE | 2024-12-12 12:57 | PM.GYNOP.1 ---
Operative Date/Time/Diagnoses Date of procedure: 12/12/24 Time of procedure: 12:57 Pre-op diagnosis: Menorrhagia Dysmenorrhea Left ovarian complex cyst Post-op diagnosis: same Procedure & Clinicians Procedure: Procedures Operation Date: 12/12/24 10:15 Actual Procedure Side Surgeon kirstin Worthyroscopic converted to open Supracervical Hysterectomy with left salpinoophrectomy, right salpingectomy, lysis of adhesions, removal of endometriosis Rachell Morales MD Indications: 44 year old G0 with dysmenorrhea, enlarged fibroid uterus, menorrhagia and a left ovarian cyst Surgeon: Rachell Morales Clinical Nurse Educator: Rosemarie Moura Anesthesia Type: General and Local Operative Notes Findings: 13 week size multifibroid uterus Significant endometriosis of the uterus, left tube, and colon Endometrioma of the left ovary Adhesions between left adnexa a uterus and bowel Closure Type: primary Specimen(s): right tube, left tube & ovary and uterus Applied: catheter (To continuous drainage) Estimated blood loss (mL): 200 Blood products transfused: none Procedure in detail: The patient was taken to the operating room where she was placed in the dorsal supine position. After adequate general endotracheal anesthesia was achieved, she was placed in the dorsal lithotomy position, and prepped and draped in the usual sterile fashion. A time-out was performed. A catheter had been placed. Emi Hugger was used for warming. A bivalve speculum was placed into the vagina and the anterior lip of the cervix was grasped with a single-tooth tenaculum. The cervical os was sequentially dilated until the Zumi uterine manipulator could pass easily into the endometrial cavity. Single-tooth tenaculum was removed from the anterior lip of the cervix. The bivalve speculum was removed from the vagina. Attention was then turned to the abdomen where 6 cc of 0.5% Marcaine with epinephrine were injected in the umbilical fold. A 5 mm incision was made. The Veress needle was placed into the peritoneal cavity, and its placement confirmed by aspiration and drop test. The abdominal cavity was insufflated with 3.8 L of CO2. The Veress needle was removed, and a 5 mm trocar was placed under direct visualization. The balloon was inflated. A second incision was made 4 cm left lateral of the umbilicus after 6 cc of 0.5% Marcaine with epinephrine were injected a second 5 mm incision was made. A second 5 mm trocar was placed under direct visualization. Initial inspection of the pelvis and abdomen revealed the findings noted above. The pelvis was probed and due to the density of the adhesions of the bowel and the left adnexa involving endometriosis, a decision was made to proceed with a laparotomy. The instruments and trocars were removed from the abdomen. A Pfannenstiel skin incision was made 2 fingerbreadths above the pubic symphysis and carried through to the underlying layer fascia. The fascia was nicked in the midline and the incision extended bilaterally with the Hinojosa scissors. The superior aspect of the fascial incision was grasped with the Latha clamps, elevated, and the underlying rectus muscles dissected off sharply and bluntly. In a similar fashion the inferior aspect of the fascial incision was grasped with the Latha clamps, elevated, and the underlying rectus muscles dissected off sharply and bluntly. The rectus muscles were in the midline. The peritoneum was identified and grasped between 2 hemostats. This was entered sharply with the Metzenbaum scissors. This incision was extended superiorly and inferiorly with good visualization of the bladder. The O'Dilip O'Maurer retractor was placed into the incision and the bowel packed away with moist lap sponges and a retractor. The bladder blade was inserted. The uterus was grasped with a 4 tooth tenaculum. A decision was made to decompress the uterus by removing the large fibroids. A solution of 20 units of Pitressin in 30 cc of saline was prepared. 10 cc of the solution was injected sub serosal early over the fibroid. Using the Bovie the serosa was opened and the fibroid was grasped with a single-tooth tenaculum. This was removed bluntly using a knife handle. Several smaller fibroids were removed as well. The for tooth tenaculum was used for hemostasis over the open part of the uterus. On the right side the round ligament was cauterized and cut with the short power seal. The uterine ovarian vessels were cauterized and cut. The round ligament and broad ligament were cauterized and cut. Metzenbaum scissors were used to create the bladder flap half-way across. On the left side there were dense adhesions between the bowel the left adnexa and the uterus. These were taken down gently with the Metzenbaum scissors and bluntly. There was a large endometrioma on the left ovary and the left ovary was significantly adhesed to the uterus. A decision was made to remove the left ovary and tube. The round ligament on the left side was cauterized and cut with a power seal. The infundibulopelvic ligament was cauterized and cut. The infundibulopelvic ligament on the left side was cauterized and cut with a power seal. The remainder of the bladder flap was created using the Metzenbaum scissors and the bladder was taken down off of the lower uterine segment and cervix. A power seal was used on the left side to cauterize the uterine arteries. It was also used on the right side to cauterize the uterine arteries. The Zumi uterine manipulator was removed from the uterus. Using the Bovie, the cervix was amputated from the uterus. The endocervical canal was extensively cauterized. The cervix was closed with a series of simple interrupted sutures using 0 Vicryl. The pelvis was copiously irrigated with warm normal saline. There was a small amount of oozing where the ovary was stuck on the left adnexa. Per clot was used for hemostasis. Hemostasis was achieved. The lap sponges and the retractor were removed from the abdomen and incision. The peritoneum was closed using 2-0 Vicryl in a running fashion. The fascia was closed using 0 Vicryl in a running fashion. The subcutaneous layer was copiously irrigated with warm normal saline. Five simple interrupted sutures with 3-0 Vicryl were placed to reapproximate the subcutaneous layer. The skin was closed with 4-0 Monocryl in a subcuticular fashion. Steri-Strips and an Aquacel dressing were placed. Sponge, lap, and instrument counts were correct x2. The patient tolerated the procedure well, and was taken to PACU in stable condition. Complications: none Post-operative Condition: stable Disposition: PACU Plan for aftercare: To acute care after recovery
[2024-12-12] MEDS: HYDROMORPHONE 1 MG INJ IV ×3 (13:14→13:28)
[2024-12-12] MEDS: LACTATED RINGERS 1,000 ML 100 ML IV ×2 (13:16→17:51)
[2024-12-12] MEDS: ONDANSETRON 4 MG/2 ML INJ IV (13:25)
[2024-12-12] MEDS: OXYCODONE IR 5 MG TABLET PO ×2 (13:27→15:01)
[2024-12-12] MEDS: ePHEDrine 50 MG/ML VIAL 25 MG IM (13:33)
--- NOTE | 2024-12-12 15:28 | PC.NURSE ---
Addendum entered by Parul Lozano R.N. 12/12/24 19:37: Patients parikh catheter taken out at 1630, patient voided 100cc of light pink urine, and had minimal pink blood on her pad. She had a PVR of 1cc. Dr. Morales is aware. Patient also had 1mg of iv morphine and her pain was much more controlled. Original Note: Patient arrived to the floor around 1400. She had a Lap supracervical hysterectomy, both tubes were were taken out and her l.ovary. Patient has an aquacel to her kini ml and 3 lap sites with aquacel dressings to mid abdomen. She ended up having to have an open hysterectomy and also had lysis of adhesions. She complains of cramps, given oxycodone 5mg orally and warm blankets to incisions. Sister is in the room and patient is resting.
[2024-12-12] MEDS: MORPHINE 2 MG/ML INJ 1 MG IV (17:51)
[2024-12-12] MEDS: ACETAMINOPHEN 325 MG TABLET 650 MG PO (17:52)
[2024-12-12] MEDS: KETOROLAC 30 MG/ML VIAL IV (20:11)
[2024-12-12] MEDS: SENNOSIDES 8.6 MG TABLET 17.2 MG PO (20:11)
[2024-12-13] MEDS: ACETAMINOPHEN 325 MG TABLET 650 MG PO ×2 (00:25→06:51)
[2024-12-13] MEDS: KETOROLAC 30 MG/ML VIAL IV ×2 (00:26→08:10)
[2024-12-13] MEDS: LACTATED RINGERS 1,000 ML 100 ML IV (02:53)
[2024-12-13 05:10] LABS: Add Manual Diff / Slide Review NO; Hematocrit 31.1 % (36-46); Hemoglobin 10.3 g/dL (12.0-16.0); Lymphocytes Absolute Auto 1800 /uL (1100-4500); Mean Corpuscular HGB Conc 33.0 % (30-36); Mean Corpuscular Hemoglobin 29.8 PG (26-34); Mean Corpuscular Volume 90.3 fL (80-100); Platelet Count 284 X10^3/uL (150-400)
[2024-12-13 06:00] LABS: Blood Urea Nitrogen 10 mg/dL (7-17); Calcium 8.9 mg/dL (8.4-10.2); Carbon Dioxide 23 mmol/L (22-32); Chloride 103 mmol/L (98-107); Estimated Glomerular Filt Rate > 60 mL/min (>60); Glucose 142 mg/dL (70-99); HEMOLYSIS < 15 (0-50); Potassium 4.2 mmol/L (3.4-5.1); Sodium 133 mmol/L (137-145)
[2024-12-13 07:00] VITALS: BP 109/64; PULSE 77; RESP 18; TEMP 36.4; O2SAT 99
[2024-12-13] MEDS: METFORMIN XR 500 MG TABLET 1500 MG PO (08:11)
--- NOTE | 2024-12-13 11:54 | PC.NURSE ---
Discharge Note Patient A&O, VSS, RA, no complaints of pain/discomfort. Discharge packet reviewed with patient, all questions/concerns addressed. PIV discontinued, patient able to dress self and pack all belongings. Patient taken down via wheelchair to POV.
--- NOTE | 2024-12-13 13:54 | CM.DANOTE ---
B DCP Assessmnet note pt is a 44yo F POD1 open hysterectomy. PCP Sveta Ruth [facility] MICROFILM TECHNICIAN reviewed EMR per chart review, pt lives in [place] with family, local supportive sister. pt voiding indep/ambulating in room. per chart review and nursing staff, dc today no obvious CM needs CM team will continue to follow in case any DCP needs should arise. FREIDA Aguilera Discharge Planning/Care Management Advanced directive, confirm from FAMILY Start: 12/12/24 14:33 Freq: Q24H Status: Discharge Protocol: Document 12/12/24 14:45 CLL (Rec: 12/12/24 14:49 CLL [id number]) Co-signed By Sinai Stover RN Advance Directive, confirm on record Time 14:49 Person contacted patient Copy received No CM Discharge Assessment Start: 12/12/24 14:30 Freq: Status: Discharge Protocol: Document 12/13/24 13:54 SL (Rec: 12/13/24 13:54 SL Desktop) Discharge Planning Assessment Assigned Discharge FREIDA Aguilera Senior Electrical Design Engineer Advance Directives? No Advance Directives No on File History Provided By Patient,Medical Record Prior Living House Arrangements Household Members family,none Type of Drives own vehicle transporation used prior to admit Independent with ADL Yes 's Is patient alert and Yes oriented? Discharge Plan Home Referrals Initiated None needed Review Status In Process Please Provide Date 12/13/24 Initial DC Assessment Was Performed Next Review Type Continued Stay Review Pre-Anesthesia Assessment Start: 12/02/24 09:37 Freq: Status: Discharge Protocol: Document 12/02/24 09:37 LB (Rec: 12/02/24 09:46 LB [id number]) Pre-Anesthesia Assessment PAC Comment 12/02/24 Chart review. Patient Information Chart Review Reviewed Via Comment 10/14/24 at . Primary Care Sveta Bonds Provider Seen Specialist in Yes Last 12 Months Specialist Seen Business Account Manager Primary Language Zimbabwean Preferred Language [place] Dairy Processing Supervisor Required No Height 165.1 cm Weight 64.864 kg Body Mass Index (BMI 23.8 ) Anesthesia Review No Requested Camp Tender No alcohol intake never Smoking Status Former smoker Patient is No completely paralyzed or completely immobile Is patient on oxygen No ? Hx Sleep Apnea No Currently Taking a No Beta [place] Anti-Coagulant No Therapy Cardiac Testing Yes: Echo 11/04. Hx Pacemaker/ICD No Genitourinary Pelvic Pain Symptoms Hx Urinary Self No Catheterization Diabetes Yes HgbA1C 5.9 Date 07/16/24 Presence of External No or Internal Medical Devices Received a COVID No vaccine? Lives With none Patient Discharge Return Home Plan Description Emergency Contact Chastity Jackson - sister Name Emergency Contact [phone] Phone Number Advance Directives No on File
== END 2024-12-13 11:25 | disposition home or self-care (01) ==
LOC: OR 14:20 → AC 14:24
PROVIDERS: PCP Nurse Practitioner; Referring Provider Obstetrics & Gynecology; Visit Provider Obstetrics & Gynecology
PROC: 0UT94ZL Resection of Uterus, Supracervical, Percutaneous Endoscopic Approach (ICD-10-PCS; CPT 58180; principal; 2024-12-12 10:15)
DX: N92.4 Excessive bleeding in the premenopausal period (principal); N83.202 Unspecified ovarian cyst, left side; N80.122 Deep endometriosis of left ovary; D25.1 Intramural leiomyoma of uterus; E11.9 Type 2 diabetes mellitus without complications; I10 Essential (primary) hypertension; E78.2 Mixed hyperlipidemia; Z79.84 Long term (current) use of oral hypoglycemic drugs; Z86.73 Personal history of transient ischemic attack (TIA), and cerebral infarction without residual deficits; N73.6 Female pelvic peritoneal adhesions (postinfective)
CPT/HCPCS: 58180; 36415; 80048; 81025; 82962; 85025; A9270; J0131; J0666; J0690; J1100; J1171; J1885; J2250; J2270; J2405; J2704; J3010; J3475; J3490

== ENCOUNTER → 2025-01-14 07:39 | Outpatient (CLI) | payer OTHER, SELFPAY ==
[2024-12-12 14:30] VITALS: BMI 23.6
[2025-01-14 11:10] LABS: Add Manual Diff / Slide Review NO; Hematocrit 37.3 % (36-46); Hemoglobin 12.5 g/dL (12.0-16.0); Lymphocytes Absolute Auto 2000 /uL (1100-4500); Mean Corpuscular HGB Conc 33.5 % (30-36); Mean Corpuscular Hemoglobin 30.1 PG (26-34); Mean Corpuscular Volume 90.0 fL (80-100); Platelet Count 243 X10^3/uL (150-400)
[2025-01-14 11:59] LABS: Hemoglobin A1C% w Est Avg Glu 6.5 % (4.0-6.0)
[2025-01-14 12:11] LABS: Alanine Aminotransferase 15 IU/L (<35); Albumin 4.6 g/dL (3.5-5.0); Albumin Globulin Ratio 1.6 (1.0-2.8); Alkaline Phosphatase 66 U/L (38-126); Blood Urea Nitrogen 18 mg/dL (7-17); Calcium 9.4 mg/dL (8.4-10.2); Carbon Dioxide 25 mmol/L (22-32); Chloride 106 mmol/L (98-107); Cholesterol 184 mg/dL (140-199); Estimated Glomerular Filt Rate > 60 mL/min (>60); Globulin 2.8 g/dL (1.7-4.1); Glucose 105 mg/dL (70-99); HDL Cholesterol 59 mg/dL (40-60); HEMOLYSIS < 15 (0-50); Potassium 4.5 mmol/L (3.4-5.1); Sodium 141 mmol/L (137-145); Total Protein 7.4 g/dL (6.3-8.2); Triglycerides 54 mg/dL (35-150)
== END ==
PROVIDERS: PCP Nurse Practitioner; Referring Provider Nurse Practitioner; Visit Provider Nurse Practitioner
DX: E11.69 Type 2 diabetes mellitus with other specified complication (principal); D64.9 Anemia, unspecified; E11.9 Type 2 diabetes mellitus without complications; E78.5 Hyperlipidemia, unspecified
CPT/HCPCS: 36415; 80053; 80061; 83036; 85025

== ENCOUNTER → 2025-04-15 07:53 | Outpatient (CLI) | payer OTHER, SELFPAY ==
[2024-12-12 14:30] VITALS: BMI 23.6
[2025-04-15 09:43] LABS: Alanine Aminotransferase 14 IU/L (<35); Albumin 4.3 g/dL (3.5-5.0); Albumin Globulin Ratio 1.5 (1.0-2.8); Alkaline Phosphatase 69 U/L (38-126); Blood Urea Nitrogen 22 mg/dL (7-17); Calcium 9.6 mg/dL (8.4-10.2); Carbon Dioxide 25 mmol/L (22-32); Chloride 104 mmol/L (98-107); Cholesterol 183 mg/dL (140-199); Estimated Glomerular Filt Rate > 60 mL/min (>60); Globulin 2.9 g/dL (1.7-4.1); Glucose 111 mg/dL (70-99); HDL Cholesterol 58 mg/dL (40-60); HEMOLYSIS < 15 (0-50); Potassium 4.9 mmol/L (3.4-5.1); Sodium 138 mmol/L (137-145); Total Protein 7.2 g/dL (6.3-8.2); Triglycerides 54 mg/dL (35-150)
[2025-04-15 09:49] LABS: Hemoglobin A1C% w Est Avg Glu 6.4 % (4.0-6.0)
== END ==
PROVIDERS: PCP Nurse Practitioner; Referring Provider Nurse Practitioner; Visit Provider Nurse Practitioner
DX: E11.69 Type 2 diabetes mellitus with other specified complication (principal); E78.5 Hyperlipidemia, unspecified
CPT/HCPCS: 36415; 80053; 80061; 83036